=== PATIENT | female | born 1980 | race Caucasian/White ===

== ENCOUNTER 2016-06-22 11:59 | Emergency (ER) | payer OTHER ==
[~2016-06-22] VITALS: Wt 45.0 kg
[2016-06-22] MEDS ORDERED: SOD CHLORIDE 0.9% 1,000 ML IV STA (12:24)
[2016-06-22] MEDS ORDERED: ONDANSETRON 4 MG INJ IV STA (12:24)
[2016-06-22] MEDS ORDERED: morphine 2 MG INJ IV STA (12:24)
[2016-06-22 13:05] LABS: ADD UMIC YES; URINE BLOOD (Dip) 1+ (NEGATIVE); URINE COLOR YELLOW (YELLOW); URINE GLUCOSE (Dip) NEGATIVE (NEGATIVE); URINE KETONES (Dip) 15 (NEGATIVE); URINE LEUKOCYTE ESTERASE (Dip) NEGATIVE (NEGATIVE); URINE NITRITE (Dip) NEGATIVE (NEGATIVE); URINE TOTAL PROTEIN (Dip) NEGATIVE (NEGATIVE); URINE UROBILINOGEN (Dip) 1.0 E.U./dL (0.1-1.0)
[2016-06-22 13:15] LABS: POTASSIUM 4.1 mmol/L (3.5-5.1)
[2016-06-22 13:17] LABS: ALBUMIN/GLOBULIN RATIO 0.85; BASOPHILS % 0.6 % (0.0-2.0); BILIRUBIN,INDIRECT 0.3 mg/dl (0-1.1); BILIRUBIN,TOTAL 0.3 mg/dl (0.2-1.3); CREATININE 0.53 mg/dl (0.44-1.00); EOSINOPHILS # 0.1 10^3/ul (0.0-0.5); EOSINOPHILS % 1.1 % (0.0-7.0); HEMATOCRIT 26.5 % (37.0-47.0); HEMOGLOBIN 8.6 g/dl (12.0-16.0); ICTOTEST POSITIVE (NEGATIVE); LYMPHOCYTES # 1.5 10^3/ul (0.8-2.9); LYMPHOCYTES % 26.6 % (15.0-51.0); MEAN CORPUSCULAR HEMOGLOBIN 24.1 pg (29.0-33.0); MEAN CORPUSCULAR HGB CONC 32.6 g/dl (32.0-37.0); MEAN PLATELET VOLUME 8.4 fl (7.4-10.4); MONOCYTE # 0.6 10^3/ul (0.3-0.9); MONOCYTES % 9.7 % (0.0-11.0); NEUTROPHIL # 3.5 10^3/ul (1.6-7.5); PLATELET COUNT 277 10^3/UL (140-440); RED BLOOD COUNT 3.58 10^6/ul (4.20-5.40); RED CELL DISTRIBUTION WIDTH 19.8 % (11.5-14.5); TOTAL PROTEIN 8.7 g/dl (6.1-8.1); UNCORRECTED WBC 5.7 10^3/ul (4.8-10.8); URINE BILIRUBIN (Dip) 1 (NEGATIVE); WHITE BLOOD COUNT 5.7 10^3/ul (4.8-10.8)
[2016-06-22 13:18] LABS: CALCIUM 8.8 mg/dl (8.4-10.2)
[2016-06-22 13:20] LABS: MUCUS,URINE MODERATE; SQUAMOUS EPITHELIAL CELL,UR FEW
[2016-06-22 13:21] LABS: BACTERIA,URINE FEW
[2016-06-22 13:26] VITALS: TEMP 98.7
[2016-06-22 13:33] LABS: CONDITION 1; LH ANALYZER COMMENTS 1
[2016-06-22] MEDS ORDERED: SOD CHLORIDE 0.9% 1,000 ML IV ONE (16:00)
[2016-06-22 16:34] LABS: HEMATOCRIT 26.1 % (37.0-47.0); HEMOGLOBIN 8.4 g/dl (12.0-16.0)
[2016-06-22 17:49] VITALS: BP 131/72; PULSE 71; RESP 18
[2016-06-22] MEDS ORDERED: ONDA4TAB11 PO (18:07)
[2016-06-22] MEDS ORDERED: FER325 PO (18:18)
--- NOTE | 2016-06-22 18:24 | ERD ---
ER Documentation Chief Complaint Date/Time DATE: 06/22/16 TIME: 18:21 Chief Complaint VOMITING AND ABDMINAL PAIN FOR THE PAST 3 DAYS. HPI 35-year-old female comes in for nausea and vomiting for 3 days. She has epigastric about pain when she vomits. Denies any blood or bile in the vomit. Denies coffee-ground emesis. States that she does not have diarrhea and is having normal bowel movements with no blood or dark stools. No fevers or chills either. ROS All systems reviewed and are negative except as per history of present illness. Medications Home Meds Active Scripts Ferrous Sulfate* (Ferrous Sulfate*) 325 Mg Tabec, 325 MG PO TID, #30 TAB Prov:CHANTAL PONCE DO 06/22/16 Ondansetron (Zofran Odt) 4 Mg Tab.rapdis, 4 MG PO Q6, #10 Prov:CHANTAL PONCE DO 06/22/16 Allergies Allergies: Coded Allergies: No Known Drug Allergy (Verified Allergy, Unknown, 02/13/15) PMhx/Soc History of Surgery: Yes (C SECTION X4) Anesthesia Reaction: No Hx Neurological Disorder: No Hx Respiratory Disorders: No Hx Cardiac Disorders: No Hx Psychiatric Problems: No Hx Miscellaneous Medical Probl: No Hx Alcohol Use: Yes (3 40 OZ BOTTLES OF ALCOHOL) Hx Substance Use: No Hx Tobacco Use: Yes (2 cigarettes per day) Smoking Status: Light tobacco smoker Physical Exam Vitals Vital Signs Date Time Temp Pulse Resp B/P Pulse Ox O2 Delivery O2 Flow Rate FiO2 06/22/16 17:49 71 18 131/72 97 Room Air 06/22/16 15:30 77 18 116/66 97 Room Air 06/22/16 13:26 98.7 75 18 110/75 97 Room Air 06/22/16 12:00 98.6 88 20 144/78 97 Physical Exam Const: [] Head: Atraumatic Eyes: Normal Conjunctiva ENT: Normal External Ears, Nose and Mouth. Neck: Full range of motion..~ No meningismus. Resp: Clear to auscultation bilaterally Cardio: Regular rate and rhythm, no murmurs Abd: Soft, non tender, non distended. Normal bowel sounds Skin: No petechiae or rashes Back: No midline or flank tenderness Ext: No cyanosis, or edema Neur: Awake and alert Psych: Normal Mood and Affect Result Diagram: 06/22/16 1555 06/22/16 1245 Results 24 hrs Laboratory Tests Test 06/22/16 12:45 06/22/16 15:55 Alanine Aminotransferase (ALT/SGPT) 45IU/L Albumin 4.0g/dl Albumin/Globulin Ratio 0.85 Alkaline Phosphatase 99IU/L Anion Gap 17 Aspartate Amino Transf (AST/SGOT) 65IU/L Basophils # 0.010^3/ul Basophils % 0.6% Blood Morphology Comment Blood Urea Nitrogen 8mg/dl Calcium Level 8.8mg/dl Carbon Dioxide Level 27mmol/L Chloride Level 106mmol/L Creatinine 0.53mg/dl Direct Bilirubin 0.00mg/dl Eosinophils # 0.110^3/ul Eosinophils % 1.1% Globulin 4.70g/dl Glucose Level 90mg/dl Hematocrit 26.5% 26.1% Hemoglobin 8.6g/dl 8.4g/dl Indirect Bilirubin 0.3mg/dl Lipase 153U/L Lymphocytes # 1.510^3/ul Lymphocytes % 26.6% Mean Corpuscular Hemoglobin 24.1pg Mean Corpuscular Hemoglobin Concent 32.6g/dl Mean Corpuscular Volume 74.0fl Mean Platelet Volume 8.4fl Monocytes # 0.610^3/ul Monocytes % 9.7% Neutrophils # 3.510^3/ul Neutrophils % 62.0% Nucleated Red Blood Cells # 0.010^3/ul Nucleated Red Blood Cells % 0.0/100WBC Platelet Count 23125^3/UL Potassium Level 4.1mmol/L Red Blood Count 3.5810^6/ul Red Cell Distribution Width 19.8% Sodium Level 146mmol/L Total Bilirubin 0.3mg/dl Total Protein 8.7g/dl Urine Bacteria FEW Urine Bilirubin 1 Urine Clarity CLEAR Urine Color YELLOW Urine Glucose NEGATIVE% Urine Hemoglobin 1+ Urine Ictotest POSITIVE Urine Ketones 15 Urine Leukocyte Esterase NEGATIVE Urine Microscopic RBC 2-5/HPF Urine Microscopic WBC 2-5/HPF Urine Mucus MODERATE Urine Nitrite NEGATIVE Urine Specific Acton >=1.030 Urine Squamous Epithelial Cells FEW Urine Total Protein NEGATIVE Urine Urobilinogen 1.0 E.U./dL Urine pH 5.5 White Blood Count 5.710^3/ul Current Medications Medications (Trade) Dose Ordered Sig/Joe Route PRN Reason Start Time Stop Time Status Last Admin Dose Admin Sodium Chloride (NS) 1,000 ml @ 1,000 mls/hr Q1H STAT IV 06/22/16 12:24 06/22/16 13:23 DC 06/22/16 12:50 Morphine Sulfate (morphine) 2 mg ONCE STAT IV 06/22/16 12:24 06/22/16 12:26 DC 06/22/16 12:47 Ondansetron HCl 4 mg 4 mg ONCE STAT IV 06/22/16 12:24 06/22/16 12:26 DC 06/22/16 12:48 Sodium Chloride (NS) 1,000 ml @ 1,000 mls/hr Q1H ONCE IV 06/22/16 16:00 06/22/16 16:59 DC 06/22/16 16:30 Procedures/MDM Significant anemia in a patient had nausea vomiting. Nausea and a bowel pain reason resolved. She was given Zofran a small dose of morphine. I reviewed her EMR from her last visit when she was transfused 2 units of blood for anemia with hemoglobin with 7. I administered a liter of normal saline and repeat H&H to see if her true hemoglobin is actually lower. Only went down by 0.2 with a liter. Has decreased significantly from was 11.3. I offered the patient [place] to the hospital if she did not appear to have a colonoscopy or EGD last time. She does not want to stay in the hospital states that she feels better when like to go home. Tobacco make her sign out AGAINST MEDICAL ADVICE. Discharge her with ferrous sulfate 3 times a day as well as Zofran and instructions to follow up with her primary care doctor which she states that she has sent is possible, preferably on Friday for referral for a gastro-neurology workup. Of explained this to her and given in writing. She is with her significant other currently and they prefer to go home. Return precautions were given if she expresses any dizziness lightheadedness or any other concerning symptoms. Departure Diagnosis: Primary Impression: Nausea & vomiting Additional Impression: Anemia Condition: Stable Patient Instructions: Anemia, Vomiting (5Y-Adult) Referrals: COMMUNITY CLINICS YOU HAVE RECEIVED A MEDICAL SCREENING EXAM AND THE RESULTS INDICATE THAT YOU DO NOT HAVE A CONDITION THAT REQUIRES URGENT TREATMENT IN THE EMERGENCY DEPARTMENT. FURTHER EVALUATION AND TREATMENT OF YOUR CONDITION CAN WAIT UNTIL YOU ARE SEEN IN YOUR DOCTORS OFFICE WITHIN THE NEXT 1-2 DAYS. IT IS YOUR RESPONSIBILITY TO MAKE AN APPOINTMENT FOR FOLOW-UP CARE. IF YOU HAVE A PRIMARY DOCTOR --you should call your primary doctor and schedule an appointment IF YOU DO NOT HAVE A PRIMARY DOCTOR YOU CAN CALL OUR PHYSICIAN REFERRAL HOTLINE AT IF YOU CAN NOT AFFORD TO SEE A PHYSICIAN YOU CAN CHOSE FROM THE FOLLOWING [facility] CLINICS [facility] [address] [facility] [address] [facility] [address] [facility] [address] [facility] [address] [facility]. [facility]. [address] Additional Instructions: Llame al doctor MAANA y luis ines JOS PARA DENTRO DE 1-2 RUBIO. Consigue un referral para un SERVICER. Dgale a la secretaria que nosotros le instruimos hacer esta jos.Avise o llame si limon condicin se empeora antes de la jos. Regresa aqui si peor o no mejor. CHANTAL PONCE DO Jun 22, 2016 18:24
== END 2016-06-22 18:28 | disposition home or self-care (01) ==
LOC: E/R 11:59
DX: R11.2 Nausea with vomiting, unspecified (principal); D64.9 Anemia, unspecified; F17.210 Nicotine dependence, cigarettes, uncomplicated
CPT/HCPCS: 36415; 80053; 81001; 83690; 85014; 85018; 85025; 96374; 96375; 99284; J2270; J2405; J7030; 81003

== ENCOUNTER 2016-12-31 15:43 | Emergency (ER) | payer OTHER ==
[~2016-12-31] VITALS: Ht 152.4 cm; Wt 45.4 kg
[~2016-12-31 15:43] MED LIST: FER325 PO; ONDA4TAB11 PO
[2016-12-31 15:45] VITALS: Ht 152.4 cm; Wt 45.4 kg
== END 2016-12-31 18:47 | disposition left against medical advice (07) ==
LOC: E/R 15:43
DX: Z53.21 Procedure and treatment not carried out due to patient leaving prior to being seen by health care provider (principal)

== ENCOUNTER 2017-02-04 17:40 | Emergency (ER) | payer OTHER ==
[~2017-02-04] VITALS: Ht 152.4 cm; Wt 60.0 kg
[2017-02-04 17:48] VITALS: Ht 152.4 cm; Wt 60.0 kg
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
[2017-02-04 19:30] VITALS: BP 107/56; PULSE 68; RESP 13; TEMP 98.2
== END 2017-02-04 19:32 | disposition home or self-care (01) ==
LOC: EDUNIT# 17:40 → E/R 17:40
DX: T51.91XA Toxic effect of unspecified alcohol, accidental (unintentional), initial encounter (principal); F17.210 Nicotine dependence, cigarettes, uncomplicated
CPT/HCPCS: 82962; 99282

== ENCOUNTER 2017-02-06 14:29 | Emergency (ER) | payer OTHER, MEDICAID ==
[~2017-02-06] VITALS: Ht 152.4 cm; Wt 45.5 kg
[2017-02-06 14:38] VITALS: Ht 152.4 cm; Wt 45.5 kg
[2017-02-06] MEDS ORDERED: DIPHTH/TET/ACEL PERTUSS (ADULT) 0.5 ML VIAL IM* ONE (15:30)
[2017-02-06] MEDS ORDERED: IBUPROFEN 600 MG TAB PO ONE (15:30)
--- NOTE | 2017-02-06 16:06 | RADRPT ---
PROCEDURE: CT Brain without contrast. CLINICAL INDICATION: Pain, headache TECHNIQUE: Routine CT scan of the brain was performed on a high resolution multi detector scanner without intravenous contrast. One or more of the following dose reduction techniques were used: Auto mated exposure control; Adjustment of the mA and/or kV according to patient size; Use of iterative r econstruction technique. CTDI = 45 mGy. DLP = 630 mGy-cm. COMPARISON: CT brain 05/17/2013 FINDINGS: Hemorrhage: No evidence of intracranial hemorrhage. Acute ischemic changes: No evidence of acute ischemic changes. Mass effect: None. Parenchymal volume: Within normal limits for age. Ventricular system: Concordant with parenchymal volume. Chronic changes: Parenchymal attenuation is within normal limits. Extracranial soft tissues: Left parietal scalp soft tissue swelling. Calvarium: No fractures. Paranasal sinuses: Small fluid level within the right maxillary sinus. Mastoid air cells: Visualized mastoid air cells are clear. IMPRESSION: No acute intracranial abnormalities. Normal appearance of the brain parenchyma. Left parietal scalp soft tissue swelling is present without fractures. RPTAT: AADD .Lui Lwe MD, MD Date Time Electronically viewed and signed by .Lui Lew MD, on 02/06/2017 16:05 .B/
[2017-02-06 17:00] VITALS: BP 115/69; PULSE 85; RESP 20; TEMP 98.3
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
== END 2017-02-06 18:17 | disposition home or self-care (01) ==
LOC: E/R 14:29
DX: S00.03XA Contusion of scalp, initial encounter (principal); F10.20 Alcohol dependence, uncomplicated; F17.210 Nicotine dependence, cigarettes, uncomplicated; Y08.89XA Assault by other specified means, initial encounter; Z23 Encounter for immunization
CPT/HCPCS: 70450; 90471; 90715

== ENCOUNTER 2018-06-22 11:03 | Emergency (ER) | payer SELFPAY ==
[~2018-06-22] VITALS: Ht 152.4 cm; Wt 40.9 kg
[~2018-06-22 11:03] MED LIST changes: -FER325 PO; +FOLI-49 PO; +LAS20 PO; +MULTI PO; -ONDA4TAB11 PO; +PANT40TA4 PO; +PROP10TA6 PO; +SPIR50TA PO; +THIA100T56 PO
[2018-06-22 11:07] VITALS: BP 102/64; PULSE 64; RESP 20; Ht 152.4 cm; Wt 40.9 kg
[2018-06-22] MEDS ORDERED: SODI30SP2 NS (12:00)
--- NOTE | 2018-06-22 13:09 | ERD ---
ER Documentation Chief Complaint Chief Complaint BIBA with Complaints of a nose bleed HPI 37-year-old female patient with a past medical history of alcoholism presents the ED complaining of nosebleed that started 2 days ago. Denies any head or neck or facial traumas. Reports no digital trauma. Denies any fever, chills, nausea, vomiting, neck stiffness, abdominal pain, chest pain, shortness of breath. Patient reports that the bleeding stopped on its own, with pressure. Denies any gum bleeding, easy bruisability. ROS All systems reviewed and are negative except as per history of present illness. Medications Home Meds Active Scripts Sodium Chloride (Saline Nasal Samson) 30 Ml Samson, 30 ML NS BID , #1 SPRAY Prov:GENESIS HAGER PA-C 06/22/18 Thiamine* (Vitamin B-1*) 100 Mg Tablet, 100 MG PO DAILY for 30 Days, #30 TAB 6 Refills Prov:TRANG GARCIA MD 03/24/18 Multivitamins* (Theragran*) 1 Tab Tab, 1 TAB PO DAILY for 30 Days, #30 TAB 6 Refills Prov:TRANG GARCIA MD 03/24/18 Folic Acid* (Folic Acid*) 1 Mg Tablet, 1 MG PO DAILY for 30 Days, #30 TAB 6 Refills Prov:TRANG GARCIA MD 03/24/18 Furosemide (Lasix) 20 Mg Tab, 20 MG PO BID DIURETICS for 30 Days, #60 TAB 6 Refills Prov:TRANG GARCIA MD 03/24/18 Spironolactone* (Aldactone*) 50 Mg Tablet, 50 MG PO DAILY for 30 Days, #30 TAB 6 Refills Prov:TRANG GARCIA MD 03/24/18 Propranolol Hcl* (Propranolol Hcl*) 10 Mg Tablet, 10 MG PO BID for 30 Days, #60 TAB 6 Refills Prov:TRANG GARCIA MD 03/24/18 Pantoprazole* (Pantoprazole*) 40 Mg Tablet.dr, 40 MG PO BID@06,18 for 30 Days, #60 TAB 6 Refills Prov:TRANG GARCIA MD 03/14/18 Allergies Allergies: Coded Allergies: No Known Drug Allergy (Verified Allergy, Unknown, 05/09/18) PMhx/Soc History of Surgery: Yes (REMOVED UTERUS.) Anesthesia Reaction: No Hx Neurological Disorder: No Hx Respiratory Disorders: No Hx Cardiac Disorders: No Hx Psychiatric Problems: No Hx Miscellaneous Medical Probl: No Hx Alcohol Use: Yes Hx Substance Use: No Hx Tobacco Use: Yes Smoking Status: Former smoker FmHx Family History: No diabetes, No coronary disease Physical Exam Vitals Vital Signs Date Temp Pulse Resp B/P (MAP) Pulse Ox O2 O2 Flow FiO2 Time Delivery Rate 06/22/18 97.8 64 20 102/64 96 11:07 (77) Physical Exam Const: Awb-sed-ptbrvzxex, well-nourished. In no acute distress. Head: Atraumatic, normocephalic Eyes: Normal Conjunctiva without injection. No purulent discharge. PERRL. EOMI ENT: Normal external ear. Ear canal without erythema. Tympanic membrane pearly starkey without effusion or bulging. Nasal canal clear with normal turbinates. Dry blood noted on the right nasal canal. Moist oropharynx without tonsillar exudates. Non-erythematous pharynx. Uvula midline. No drooling. No trismus. Neck: Full range of motion. No meningismus. No cervical lymphadenopathy. Resp: Clear to auscultation bilaterally. No wheezing, rhonchi, rales, or crackles. No accessory muscle use. No retractions. Cardio: Regular rate and rhythm. No murmurs, rubs or gallops. Abd: Soft, non tender, non distended. Normal bowel sounds. No palpable masses. No rebound tenderness. No guarding. Skin: No petechiae or rashes Back: No midline tenderness. No CVA tenderness. Ext: No cyanosis, or edema. Neur: Awake and alert. Psych: Normal Mood and Affect Procedures/MDM 37-year-old female patient with a past medical history of alcoholism presents to ED complaining of a nosebleed that started 2 days ago. Patient is afebrile and nontoxic-appearing. She likely has an anterior epistaxis with dried blood noted in the right nasal nare. Low suspicion for posterior epistaxis, intracranial bleed, bleeding disorders, subarachnoid hemorrhage, meningitis, alcohol withd shantell, TIA, stroke, nasal fracture, or other emergent conditions. She denies any suicidal homicidal ideations. No indication for 5150 for psychiatric evaluation at this time. Discussed with Dr. Zuniga who agreed with management and discharge plan Diagnosis: Epistaxis Discharge medications: Nasal Saline Samson Follow up with primary care physician in 1-2 days. Instructed patient to return to the ED sooner for any worsening symptoms. Patient's questions were answered. Patient is hemodynamically stable. Patient understood and agreed with discharge plan. Patient discharged stable. Disclaimer: Inadvertent spelling and grammatical errors are likely due to EHR/dictation software use and do not reflect on the overall quality of patient care. Also, please note that the electronic time recorded on this note does not necessarily reflect the actual time of the patient encounter. Departure Diagnosis: Primary Impression: Epistaxis Condition: Stable Patient Instructions: Epistaxis (Adult) Referrals: [facility] YOU HAVE RECEIVED A MEDICAL SCREENING EXAM AND THE RESULTS INDICATE THAT YOU DO NOT HAVE A CONDITION THAT REQUIRES URGENT TREATMENT IN THE EMERGENCY DEPARTMENT. FURTHER EVALUATION AND TREATMENT OF YOUR CONDITION CAN WAIT UNTIL YOU ARE SEEN IN YOUR DOCTORS OFFICE WITHIN THE NEXT 1-2 DAYS. IT IS YOUR RESPONSIBILITY TO MAKE AN APPOINTMENT FOR FOLOW-UP CARE. IF YOU HAVE A PRIMARY DOCTOR --you should call your primary doctor and schedule an appointment IF YOU DO NOT HAVE A PRIMARY DOCTOR YOU CAN CALL OUR PHYSICIAN REFERRAL HOTLINE AT IF YOU CAN NOT AFFORD TO SEE A PHYSICIAN YOU CAN CHOSE FROM THE FOLLOWING [facility] [address] [facility]. [facility] [address] [facility] [address] [facility] [facility] [address] [facility] [facility] [address] [facility] [facility]. [address] [facility]. [facility] YOU HAVE RECEIVED A MEDICAL SCREENING EXAM AND THE RESULTS INDICATE THAT YOU DO NOT HAVE A CONDITION THAT REQUIRES URGENT TREATMENT IN THE EMERGENCY DEPARTMENT. FURTHER EVALUATION AND TREATMENT OF YOUR CONDITION CAN WAIT UNTIL YOU ARE SEEN IN YOUR DOCTORS OFFICE WITHIN THE NEXT 1-2 DAYS. IT IS YOUR RESPONSIBILITY TO MAKE AN APPOINTMENT FOR FOLOW-UP CARE. IF YOU HAVE A PRIMARY DOCTOR --you should call your primary doctor and schedule and appointment IF YOU DO NOT HAVE A PRIMARY DOCTOR YOU CAN CALL OUR PHYSICIAN REFERRAL HOTLINE AT . IF YOU CAN NOT AFFORD TO SEE A PHYSICIAN YOU CAN CHOSE FROM THE FOLLOWING [facility] INSTITUTIONS: [facility] [address] [place] [address] [facility] [address] [place] [address] [facility] [address] [place] [address] [facility] URGENT CARE/SPECIALTIES Additional Instructions: Llame al doctor MAANA y luis ines JOS PARA DENTRO DE 2-3 RUBIO.Dgale a la secretaria que nosotros le instruimos hacer esta jos.Avise o llame si limon condicin se empeora antes de la jos. Regresa aqui si peor o no mejor. GENESIS HAGER PA-C Jun 22, 2018 13:09
== END 2018-06-22 12:30 | disposition home or self-care (01) ==
LOC: FTE 11:03
DX: R04.0 Epistaxis (principal); Z87.891 Personal history of nicotine dependence
CPT/HCPCS: 99282

== ENCOUNTER 2018-07-05 19:53 | Emergency (ER) | payer MEDICAID ==
[~2018-07-05] VITALS: Ht 147.3 cm; Wt 45.5 kg
[~2018-07-05 19:53] MED LIST changes: +SODI30SP2 NS
[2018-07-05 19:57] VITALS: BP 132/80; PULSE 116; RESP 18; Ht 147.3 cm; Wt 45.5 kg
[2018-07-06] MEDS ORDERED: ELIM TOP (02:02)
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
== END 2018-07-06 02:47 | disposition home or self-care (01) ==
LOC: FTE 19:53
DX: S80.11XA Contusion of right lower leg, initial encounter (principal); R21 Rash and other nonspecific skin eruption; S80.12XA Contusion of left lower leg, initial encounter; F17.210 Nicotine dependence, cigarettes, uncomplicated; Y04.8XXA Assault by other bodily force, initial encounter
CPT/HCPCS: 70450; 70486; 72125; 73562; 73590; 73600; 81003; 81025; Z7502

== ENCOUNTER 2018-07-27 16:26 | Emergency (ER) | payer MEDICAID ==
[~2018-07-27] VITALS: Ht 152.4 cm; Wt 50.0 kg
[~2018-07-27 16:26] MED LIST changes: +ELIM TOP
[2018-07-27 16:44] VITALS: Ht 152.4 cm; Wt 50.0 kg
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
[2018-07-28 02:11] VITALS: BP 102/72; PULSE 52; RESP 16
== END 2018-07-28 02:15 | disposition home or self-care (01) ==
LOC: E/R 16:26
DX: F10.920 Alcohol use, unspecified with intoxication, uncomplicated (principal); F17.210 Nicotine dependence, cigarettes, uncomplicated; R51 Headache
CPT/HCPCS: 70450; 84703; Z7502

== ENCOUNTER 2018-08-22 12:42 | Inpatient (IN) | payer MEDICAID ==
[~2018-08-22] VITALS: Ht 149.9 cm; Wt 40.3 kg
[2018-08-22] MEDS ORDERED: SOD CHLORIDE 0.9% 1,000 ML IV STA (13:04)
[2018-08-22] MEDS ORDERED: PANTOPRAZOLE IV 80 MG in SOD CHLORIDE 0.9% 100 ML IVPB STA (14:04)
[2018-08-22] MEDS ORDERED: OCTREOTIDE 500 MCG in SOD CHLORIDE 0.9% 49 ML IV STA (14:04)
[2018-08-22] MEDS ORDERED: ONDANSETRON 4 MG INJ IV STA (14:04)
[2018-08-22] MEDS ORDERED: PANTOPRAZOLE IV 80 MG in SOD CHLORIDE 0.9% 100 ML IV STA (14:04)
[2018-08-22] MEDS ORDERED: ONDANSETRON 4 MG INJ IV PRN ×2 (15:30→17:30)
--- NOTE | 2018-08-22 15:47 | ERD ---
ER Documentation Chief Complaint Chief Complaint AP/FLU LIKE SYMPTOMS [id number] HPI This is a 29-year-old female with multiple previous emergency room visits and known history of alcoholic liver disease. The patient presents to the emergency department brought in by EMS as she stated she had developed abdominal cramping with multiple episodes of bloody emesis. She stated it was [id number] in color. She indicated that she had consumed a significant amount of alcohol prior to arrival. She denied any blunt or penetrating head chest or abdominal trauma. She denies any bright red blood per rectum. She denies any chest pain. She has no shortness of breath at rest or exertion. She denies any illicit drug use. She said no fevers or shaking or chills ROS All systems reviewed and are negative except as per history of present illness. Medications Home Meds Discontinued Scripts Permethrin* (Elimite*) 5% Cr, 1 APPLIC TOP ONCE, #1 TUB Prov:GENESIS HAGER PA-C 07/06/18 Sodium Chloride (Saline Nasal [place]) 30 Ml [place], 30 ML NS BID , #1 SPRAY Prov:GENESIS HAGER PA-C 06/22/18 Thiamine* (Vitamin B-1*) 100 Mg Tablet, 100 MG PO DAILY for 30 Days, #30 TAB 6 Refills Prov:TRANG GARCIA MD 03/24/18 Multivitamins* (Theragran*) 1 Tab Tab, 1 TAB PO DAILY for 30 Days, #30 TAB 6 Refills Prov:TRANG GARCIA MD 03/24/18 Folic Acid* (Folic Acid*) 1 Mg Tablet, 1 MG PO DAILY for 30 Days, #30 TAB 6 Refills Prov:TRANG GARCIA MD 03/24/18 Furosemide (Lasix) 20 Mg Tab, 20 MG PO BID DIURETICS for 30 Days, #60 TAB 6 Refills Prov:TRANG GARCIA MD 03/24/18 Spironolactone* (Aldactone*) 50 Mg Tablet, 50 MG PO DAILY for 30 Days, #30 TAB 6 Refills Prov:TRANG GARCIA MD 03/24/18 Propranolol Hcl* (Propranolol Hcl*) 10 Mg Tablet, 10 MG PO BID for 30 Days, #60 TAB 6 Refills Prov:TRANG GARCIA MD 03/24/18 Pantoprazole* (Pantoprazole*) 40 Mg Tablet.dr, 40 MG PO BID@06,18 for 30 Days, #60 TAB 6 Refills Prov:TRANG GARCIA MD 03/14/18 Allergies Allergies: Coded Allergies: No Known Drug Allergy (Verified Allergy, Unknown, 08/22/18) PMhx/Soc History of Surgery: Yes (REMOVED UTERUS.) Anesthesia Reaction: No Hx Neurological Disorder: No Hx Respiratory Disorders: No Hx Cardiac Disorders: No Hx Psychiatric Problems: Yes (ETOH ABUSE) Hx Miscellaneous Medical Probl: Yes (DM) Hx Alcohol Use: Yes (ETOH INTOXICATION) Hx Substance Use: No Hx Tobacco Use: Yes Smoking Status: Current every day smoker Physical Exam Vitals Vital Signs Date Temp Pulse Resp B/P (MAP) Pulse Ox O2 O2 Flow FiO2 Time Delivery Rate 08/22/18 98.9 103 16 110/63 96 12:47 (79) Physical Exam Constitutional:Well-developed. Disheveled and cachectic HEENT:Normocephalic. Atraumatic.Pupils were equal round reactive to light. Very dry mucous membranes dried blood present around the outer lips.No tonsillar exudates. Mild scleral icterus Neck: No nuchal rigidity. No lymphadenopathy. No posterior cervical spine tenderness or step-offs. Respiratory: Not using accessory muscles of respiration.Lungs were clear to auscultation bilaterally. No rhonchi. No rales. No wheezing. Cardiovascular: Tachycardic with regular rhythm.No murmurs. No rubs were appreciated.S1, S2 normal. Distal pulses are palpable 2+ bilaterally. GI: Abdomen was soft. Nontender. Hepatomegaly. Non Distended. No pulsatile abdominal masses or bruits. No rebound. No guarding. Bowel sounds were present and normal. Muscle skeletal: Full range of motion of both the upper and lower extremities bilaterally.Normal muscle tone.No assymetrical calf tenderness or swelling. Skin: No petechia, no purpura. No lesions on the palms or the soles of the feet. No maculopapular rash. NEURO: Patient drowsy but easily arousable. Speech was not slurred. The patient smells of alcohol. Patient was too altered to ambulate. Patient withdrew to pain. Result Diagram: 08/22/18 1315 08/22/18 1314 Results 24 hrs Laboratory Tests Test 08/22/18 13:14 08/22/18 13:15 3/30/19 13:51 Prothrombin Time 20.0 Sec Prothrombin Time Ratio 1.6 INR International Normalized Ratio 1.69 Activated Partial Thromboplast 48.0 Sec Time Sodium Level 141 mmol/L Potassium Level 3.2 mmol/L Chloride Level 111 mmol/L Carbon Dioxide Level 22 mmol/L Anion Gap 8 Blood Urea Nitrogen 6 mg/dl Creatinine 0.44 mg/dl Est Glomerular Filtrat Rate mL/min > 60 mL/min Glucose Level 105 mg/dl Calcium Level 7.8 mg/dl Total Bilirubin 3.8 mg/dl Direct Bilirubin 1.30 mg/dl Indirect Bilirubin 2.5 mg/dl Aspartate Amino Transf (AST/SGOT) 89 IU/L Alanine 15 IU/L Aminotransferase (ALT/SGPT) Alkaline Phosphatase 337 IU/L Total Protein 9.0 g/dl Albumin 2.9 g/dl Globulin 6.10 g/dl Albumin/Globulin Ratio 0.47 Amylase Level 202 U/L Lipase 613 U/L Serum HCG, Qualitative NEGATIVE Ethyl Alcohol Level 255.0 mg/dl White Blood Count 4.6 10^3/ul Red Blood Count 1.57 10^6/ul Hemoglobin 6.3 g/dl Hematocrit 19.7 % Mean Corpuscular Volume 125.5 fl Mean Corpuscular Hemoglobin 40.1 pg Mean Corpuscular 32.0 g/dl Hemoglobin Concent Red Cell Distribution Width 15.8 % Platelet Count 37 10^3/UL Mean Platelet Volume 9.5 fl Immature Granulocytes % 0.400 % Neutrophils % % Segmented Neutrophils % (Manual) 73 % Lymphocytes % % Lymphocytes % (Manual) 18 % Monocytes % % Monocytes % (Manual) 8 % Eosinophils % % Eosinophils % (Manual) 1 % Basophils % % Nucleated Red Blood Cells % 0.0 /100WBC Immature Granulocytes # 0.020 10^3/ul Neutrophils # 10^3/ul Lymphocytes (Manual) 0.8 10^3/ul Lymphocytes # 10^3/ul Monocytes # 10^3/ul Monocytes # (Manual) 0.3 10^3/ul Eosinophils # 10^3/ul Basophils # 10^3/ul Nucleated Red Blood Cells # 10^3/ul Pathologist Review (Hematology) Y Giant Platelets 1 % Absolute Reticulocyte Count 0.118 X10^6 Percent Reticulocyte Count 7.8 % Iron Level 44 ug/dl Total Iron Binding Capacity 182 ug/dl Percent Iron Saturation 24 % SAT Ferritin 35.7 ng/ml Lactate Dehydrogenase 699 IU/L Current Medications Medications Dose Sig/Joe Start Time Status Last (Trade) Ordered Route PRN Stop Time Admin Dose Reason Admin Sodium 1,000 ml @ Q1H STAT 08/22/18 DC 08/22/18 Chloride 1,000 mls/hr IV 13:04 13:38 08/22/18 14:03 Pantoprazole 100 ml @ ONCE STAT 08/22/18 DC 08/22/18 80 mg/Sodium 400 mls/hr IVPB 14:04 14:57 Chloride 08/22/18 14:18 Pantoprazole 100 ml @ ONCE STAT 08/22/18 08/22/18 80 mg/Sodium 10 mls/hr IV 14:04 14:57 Chloride 08/23/18 00:03 Octreotide 50 ml @ 5 ONCE STAT 08/22/18 08/22/18 Acetate 500 mls/hr IV 14:04 14:57 mcg/ Sodium 08/23/18 00:03 Chloride Ondansetron 4 mg ONCE STAT 08/22/18 DC 08/22/18 HCl (Zofran IV 14:04 15:07 Inj) 08/22/18 14:08 Ondansetron 4 mg ER BRIDGE 08/22/18 HCl (Zofran PRN IV 15:30 Inj) NAUSEA/VOMITI 08/23/18 15:29 NG Procedures/MDM The patient presented to the emergency department with an acute and persistent change in their mental status. The differential diagnosis is diverse however reversible causes such as hypoglycemia, opiate overdose, thiamine deficiency were immediately considered. The patient was placed on a equipment monitor phototypesetting, continuous pulse oximetry and IV access was established. The patients airway was secure however hypoxic events such as anemia, shock, or severe pulmonary disease were all considered as etiologies in this patients presentation. Circulation assessed with good cap refill and did not require fluids or pressure support. Finger stick for rapid glucose determined to be normal. The patient appeared very drowsy but showed no evidence of blunt or penetrating head chest or abdominal trauma. I did feel the patient's drowsiness likely result of alcohol intoxication as her serum ethanol was significantly elevated to 225. The patient however did state that she had experienced coffee-ground emesis which is more concerning for an upper GI bleed given that the patient has a history of alcoholism. She immediately was placed on IV Protonix and octreotide. She was given Zofran. Chest radiograph showed mild pulmonary vascular congestion but there is no infiltrates or pneumothorax. The patient will be admitted in serious condition for continuation of PPIs for suspected upper GI bleed secondary to alcoholic liver disease. The patient was significantly anemic with a hemoglobin of 6.3 and this was a macrocytic anemia. The patient was typed and crossed and given 2 units of packed red blood cells. Patient was also thrombocytopenic with a platelet count of 37,000. This will continue to be monitored upon admission. Patient will go to the telemetry service in serious condition under the care of the hospitalist Dr. Nagel Critical Care: Time: 80 minutes Treatments/Evaluations: Close monitoring and treatment of unstable vital signs, cardiorespiratory, and neurologic status, while maintaining tight balance of fluid, respiratory, and cardiac interventions. Time does not include performing any of the above billable procedures. Departure Diagnosis: Primary Impression: Upper GI bleed Additional Impressions: Toxic encephalopathy Severe anemia Thrombocytopenia Condition: Serious CHRIS MUELLER MD Aug 22, 2018 15:47
[2018-08-22] MEDS ORDERED: LORAZEPAM 2 MG INJ IV PRN (17:30)
[2018-08-22] MEDS ORDERED: ALBUTEROL/IPRATROPIUM (NEB) 3 ML AMP HHN PRN (17:30)
[2018-08-22] MEDS ORDERED: hydrALAzine 20 MG INJ IV PRN (17:30)
[2018-08-22] MEDS ORDERED: NITROGLYCERIN (SL) 0.4 MG TAB SL PRN (17:30)
[2018-08-22] MEDS ORDERED: ACETAMINOPHEN 325 MG TAB PO PRN (17:30)
[2018-08-22] MEDS ORDERED: NACL 0.9% 3 ML SYG IV SCH (17:30)
[2018-08-22] MEDS ORDERED: morphine 2 MG INJ IV PRN (17:30)
[2018-08-22] MEDS ORDERED: DOCUSATE SODIUM 100 MG CAP PO PRN (17:30)
[2018-08-22] MEDS ORDERED: MAGNESIUM HYDROXIDE 30ML CUP PO PRN (17:30)
[2018-08-22] MEDS ORDERED: HYDROCODONE/APAP (5/325) TAB PO PRN (17:30)
[2018-08-22 17:46] VITALS: BP 98/57; PULSE 111; RESP 16; Ht 149.9 cm; Wt 40.3 kg
[2018-08-22 17:59] VITALS: PULSE 103
--- NOTE | 2018-08-22 19:49 | HP ---
DATE OF ADMISSION: 08/22/2018 IDENTIFICATION: This is a 37-year-old female. CHIEF COMPLAINT: Altered mental status and anemia. HISTORY OF PRESENT ILLNESS: A 37-year-old female with past medical history based on records of alcoh ol abuse, alcoholic cirrhosis, possible diabetes, prior failure to thrive syndrome who was last here at our hospital from 03/07 to 03/24/2018. At that time, she was treated for failure to thrive and pa ncreatitis and hematemesis. She comes in this time with altered mental status. She was brought in b y EMS. She also was complaining of abdominal cramping and had multiple episodes of hematemesis, coff ee-ground like in color and intensity. The patient does admit to recent alcohol use as well. Denies any lower GI bleeding, no diarrhea or constipation, no nausea, vomiting or fevers or chills. When s he came in today, she had blood tests performed that showed a hemoglobin of 6.3 and she has been orde red for 2 units of PRBC transfusion, which is presently waiting to be given. She was also found with platelets of 37, significant thrombocytopenia. She was also in the ER, started on Protonix drip and octreotide drip. PAST MEDICAL HISTORY: As stated above. ALLERGIES: NO KNOWN DRUG ALLERGIES. HOME MEDICATIONS: Unknown. PAST SURGICAL HISTORY: Looks like uterus removal surgery in the past. SOCIAL HISTORY: Positive for alcohol use and smoking history. Counseled on cessation. FAMILY HISTORY: Noncontributory. PHYSICAL EXAMINATION: VITAL SIGNS: Today, T-max 98.9, pulse 103, respirations 18, blood pressure 110/63, satting at 96% on room air. GENERAL: The patient is lying in bed, disheveled and cachectic looking, but opens eyes. HEENT: Pupils equal, round, reactive to light, extraocular muscles intact. NECK: Supple, no thyromegaly. LUNGS: Slightly decreased breath sounds bilaterally. CARDIOVASCULAR: S1, S2 heard. No rubs or gallops. ABDOMEN: Soft, nontender. There is no hepatomegaly noted but nondistended, otherwise. No rebound o r guarding. Normal bowel sounds. MUSCULOSKELETAL: No lower extremity edema bilaterally. NEUROLOGIC: No focal deficits. LABORATORIES: WBC 4.6, hemoglobin 6.3, hematocrit 19.7, platelets are 37. The sodium 141, potassium 3.2, chloride 111, CO2 22, BUN 6, creatinine 0.44, glucose of 105. The total bilirubin is 3.8, the direct is 1.3. The lactate dehydrogenase elevated at 699, indirect bilirubin is 2.5, AST is 89, debo line phosphatase is 337. Lipase is 613. Amylase is 202, so those are both elevated. There is no UA from today. The blood alcohol level is elevated at 255. Chest x-ray today shows pulmonary vascular congestion and edema present. ASSESSMENT AND PLAN: 1. A 37-year-old female coming in with weakness and alcohol intoxication and anemia secondary to upp er gastrointestinal bleeding, most likely with a prior history of cirrhosis and alcohol abuse and arias lure to thrive and diabetes. Continue proton pump inhibitor and octreotide drips for now. 2. Anemia, hematemesis. Again, patient has a history of cirrhosis and alcohol abuse history and she admits to drinking recently and her blood alcohol level was elevated, so admit the patient. Give he r blood transfusion. Follow up stool occult test get a GI consult. Follow up TSH, A1c and lipid [place]. The patient is showing signs of possible alcoholic hepatitis, given her elevated LFTs. We will continue to trend those for now. Consider starting steroids. We will discuss with GI team who will consult as well. 3. Alcohol intoxication. Again, see #1. We will put on banana bag, Ativan q.1 hours p.r.n. signs o f withdrawal and agitation. If her symptoms worsen, consider Librium administration. 4. History of diabetes. Follow up A1c. Continue sliding scale insulin. 5. History of alcoholic cirrhosis. Again, counseled on cessation, see #1. 6. Gastrointestinal prophylaxis. Again, she is on proton pump inhibitor. 7. Deep venous thrombosis prophylaxis. Sequential compression devices. Dictated By: COLIN MCBRIDE Conf#: [id number] DID#: [id number]
[2018-08-22 20:00] VITALS: BP 102/57; PULSE 100; PULSE 98; RESP 18
[2018-08-22] MEDS: NICOTINE (14 MG/24 HR) PATCH TRANSDERM SCH (21:00)
[2018-08-23] VITALS (10 sets, daily range): BP systolic 105–157; BP diastolic 60–86; PULSE 82–104; RESP 18–20
[2018-08-23] MEDS ORDERED: DEXTROSE 5%-0.45% NACL 1,000 ML IV SCH (01:00)
[2018-08-23] MEDS ORDERED: POTASSIUM CHLORIDE 100 ML IVPB ONE (01:00)
[2018-08-23] MEDS ORDERED: hydrALAzine 20 MG INJ IV ONE (01:30)
[2018-08-23] MEDS: PANTOPRAZOLE 40 MG INJ IV SCH ×2 (05:08→18:12)
[2018-08-23] MEDS: MULTIVITAMINS 10 ML, THIAMINE 100 MG, FOLIC ACID 1 MG in SOD CHLORIDE 0.9% 1,000 ML IVPB SCH (08:49)
[2018-08-23] MEDS ORDERED: SOD CHLORIDE 0.9% 250 ML IV* ONE (10:27)
--- NOTE | 2018-08-23 10:52 | PN ---
Date/Time of Note Date/Time of Note DATE: 08/23/18 TIME: 10:41 Assessment/Plan VTE Prophylaxis Risk score (from Ns)>0 risk: 1 SCD applied (from Ns): Yes Pharmacological prophylaxis: NA/contraindicated Pharm contraindication: bleeding Lines/Catheters IV [facility]from [facility]): Peripheral IV Assessment/Plan Hospital Course S: Patient had some more hematemesis last night, presently getting PRBC transfusion. On banana bag. Waiting to be seen by GI team. Patient asking when she can eat. O: VS -see below PHYSICAL EXAMINATION: GENERAL: Lying in bed, no acute distress HEENT: pupils equal, round, reactive to light, extraocular muscles intact. NECK: Supple, no thyromegaly. LUNGS: Slightly decreased breath sounds bilaterally. CARDIOVASCULAR: S1, S2 heard. No rubs or gallops. ABDOMEN: Soft, nontender. There is no hepatomegaly noted but nondistended, otherwise. No rebound or guarding. Normal bowel sounds. MUSCULOSKELETAL: No lower extremity edema bilaterally. NEUROLOGIC: No focal deficits. ASSESSMENT AND PLAN: 37-year-old female coming in with weakness and alcohol intoxication and anemia secondary to upper gastrointestinal bleeding, most likely with a prior history of cirrhosis and alcohol abuse and failure to thrive and diabetes. # Anemia + hematemesis-hemoglobin on admission 6 range, presently getting PRBC transfusion. Received PPI drip and octreotide on admission. Patient has a history of cirrhosis and alcohol abuse history and she admits to drinking recently and her blood alcohol level was elevated on admission, as well as her ammonia levels. -Follow-up post transfusion H&H, as well as stool occult test and GI consult recommendations -For her thrombocytopenia, since she is bleeding will order for 1 unit blood transfusion today. Follow-up CBC in the morning. -Replete low magnesium # Alcohol hepatitis + intoxication - LFTs are elevated, including total bilirubin 3.8 on admission, today 5. Discriminate function score appears to be in the 36-42 range. -Follow GI recommendations, for now start her on prednisone 40 mg a day, treat for 28 days if okay with GI team -For alcohol intoxication, continue banana bag, Ativan q.1 hours p.r.n. signs of withdrawal and agitation. If these symptoms worsen, consider Librium administration. -For elevated ammonia levels, likely signs of hepatic encephalopathy start lactulose and trend ammonia -Soft hepatic diet # History of diabetes -sugar stable, A1c result not back yet - continue sliding scale insulin. # History of alcoholic cirrhosis. Again, counseled on cessation, see #1. # Gastrointestinal prophylaxis- proton pump inhibitor IV Result Diagram: 08/23/18 0456 08/23/18 0456 Results 24hrs Laboratory Tests Test 08/22/18 13:14 08/22/18 13:15 08/22/18 13:45 08/22/18 13:51 Prothrombin Time 20.0 H Prothrombin Time 1.6 Ratio INR International 1.69 Normalized Ratio Activated 48.0 H Partial Thromboplast Time Sodium Level 141 Potassium Level 3.2 L Chloride Level 111 H Carbon Dioxide Level 22 Anion Gap 8 Blood Urea Nitrogen 6 L Creatinine 0.44 Est Glomerular > 60 Filtrat Rate mL/min Glucose Level 105 Calcium Level 7.8 L Total Bilirubin 3.8 H Direct Bilirubin 1.30 H Indirect Bilirubin 2.5 H Aspartate Amino 89 H Transf (AST/SGOT) Alanine 15 Aminotransferase (AL T/SGPT) Alkaline Phosphatase 337 H B-Type Natriuretic 180 H Peptide Total Protein 9.0 H Albumin 2.9 L Globulin 6.10 H Albumin/Globulin 0.47 Ratio Amylase Level 202 H Lipase 613 H Serum HCG, NEGATIVE Qualitative Ethyl Alcohol Level 255.0 H White Blood Count 4.6 #L Red Blood Count 1.57 #L Hemoglobin 6.3 #*L Hematocrit 19.7 #L Mean Corpuscular 125.5 #H Volume Mean Corpuscular 40.1 #H Hemoglobin Mean Corpuscular 32.0 Hemoglobin Concent Red Cell 15.8 H Distribution Width Platelet Count 37 #L Mean Platelet Volume 9.5 Immature 0.400 Granulocytes % Neutrophils % Segmented 73 Neutrophils % (Manual) Lymphocytes % Lymphocytes % 18 (Manual) Monocytes % Monocytes % (Manual) 8 Eosinophils % Eosinophils % 1 (Manual) Basophils % Nucleated Red Blood 0.0 Cells % Immature 0.020 Granulocytes # Neutrophils # Lymphocytes (Manual) 0.8 Lymphocytes # Monocytes # Monocytes # (Manual) 0.3 Eosinophils # Basophils # Nucleated Red Blood Cells # Pathologist Y Review (Hematology) Giant Platelets 1 H Free Thyroxine 1.43 Absolute 0.118 H Reticulocyte Count Percent Reticulocyte 7.8 H Count Iron Level 44 Total Iron Binding 182 L Capacity Percent Iron 24 Saturation Ferritin 35.7 Lactate 699 H Dehydrogenase Test 08/22/18 18:35 08/23/18 04:54 08/23/18 04:56 Prothrombin Time 19.6 H Prothrombin Time 1.5 Ratio INR International 1.65 Normalized Ratio Activated 50.1 H Partial Thromboplast Time Ammonia 96 #H 78 H Triglycerides Level 95 Cholesterol Level 169 LDL Cholesterol, 117 Calculated HDL Cholesterol 33 L Cholesterol/HDL 5.1 Ratio Thyroid Stimulating 0.177 L Hormone (TSH) White Blood Count 3.6 #L Red Blood Count 1.45 L Hemoglobin 5.7 *L Hematocrit 18.2 L Mean Corpuscular 125.5 H Volume Mean Corpuscular 39.3 H Hemoglobin Mean Corpuscular 31.3 L Hemoglobin Concent Red Cell 15.2 H Distribution Width Platelet Count 32 L Mean Platelet Volume 10.2 Immature 0.600 H Granulocytes % Neutrophils % 72.0 Lymphocytes % 18.6 Monocytes % 6.9 Eosinophils % 1.1 Basophils % 0.8 Nucleated Red Blood 0.0 Cells % Immature 0.020 Granulocytes # Neutrophils # 2.6 Lymphocytes # 0.7 L Monocytes # 0.3 Eosinophils # 0.0 Basophils # 0.0 Nucleated Red Blood 0.0 Cells # Sodium Level 139 Potassium Level 3.7 Chloride Level 107 Carbon Dioxide Level 23 Anion Gap 9 Blood Urea Nitrogen 3 L Creatinine 0.40 L Est Glomerular > 60 Filtrat Rate mL/min Glucose Level 155 Hemoglobin A1c Calcium Level 7.7 L Phosphorus Level 3.8 Magnesium Level 1.3 L Total Bilirubin 5.0 H Direct Bilirubin 2.10 #H Indirect Bilirubin 2.9 H Aspartate Amino 86 H Transf (AST/SGOT) Alanine 26 Aminotransferase (AL T/SGPT) Alkaline Phosphatase 263 H Total Protein 8.1 Albumin 2.6 L Lipase 129 Exam/Review of Systems Exam Vitals Vital Signs Date Temp Pulse Resp B/P (MAP) Pulse Ox O2 O2 Flow FiO2 Time Delivery Rate 08/23/18 104 08:47 08/23/18 98.0 20 108/62 98 07:32 (77) 08/22/18 Room Air 17:46 Intake and Output 08/22/18 08/22/18 08/23/18 1515:00 23:00 07:00 IntakeIntake Total 1000 ml 100 ml 500 ml BalanceBalance 1000 ml 100 ml 500 ml Results Results 24hrs Laboratory Tests Test 08/22/18 13:14 08/22/18 13:15 08/22/18 13:45 08/22/18 13:51 Prothrombin Time 20.0 H Prothrombin Time 1.6 Ratio INR International 1.69 Normalized Ratio Activated 48.0 H Partial Thromboplast Time Sodium Level 141 Potassium Level 3.2 L Chloride Level 111 H Carbon Dioxide Level 22 Anion Gap 8 Blood Urea Nitrogen 6 L Creatinine 0.44 Est Glomerular > 60 Filtrat Rate mL/min Glucose Level 105 Calcium Level 7.8 L Total Bilirubin 3.8 H Direct Bilirubin 1.30 H Indirect Bilirubin 2.5 H Aspartate Amino 89 H Transf (AST/SGOT) Alanine 15 Aminotransferase (AL T/SGPT) Alkaline Phosphatase 337 H B-Type Natriuretic 180 H Peptide Total Protein 9.0 H Albumin 2.9 L Globulin 6.10 H Albumin/Globulin 0.47 Ratio Amylase Level 202 H Lipase 613 H Serum HCG, NEGATIVE Qualitative Ethyl Alcohol Level 255.0 H White Blood Count 4.6 #L Red Blood Count 1.57 #L Hemoglobin 6.3 #*L Hematocrit 19.7 #L Mean Corpuscular 125.5 #H Volume Mean Corpuscular 40.1 #H Hemoglobin Mean Corpuscular 32.0 Hemoglobin Concent Red Cell 15.8 H Distribution Width Platelet Count 37 #L Mean Platelet Volume 9.5 Immature 0.400 Granulocytes % Neutrophils % Segmented 73 Neutrophils % (Manual) Lymphocytes % Lymphocytes % 18 (Manual) Monocytes % Monocytes % (Manual) 8 Eosinophils % Eosinophils % 1 (Manual) Basophils % Nucleated Red Blood 0.0 Cells % Immature 0.020 Granulocytes # Neutrophils # Lymphocytes (Manual) 0.8 Lymphocytes # Monocytes # Monocytes # (Manual) 0.3 Eosinophils # Basophils # Nucleated Red Blood Cells # Pathologist Y Review (Hematology) Giant Platelets 1 H Free Thyroxine 1.43 Absolute 0.118 H Reticulocyte Count Percent Reticulocyte 7.8 H Count Iron Level 44 Total Iron Binding 182 L Capacity Percent Iron 24 Saturation Ferritin 35.7 Lactate 699 H Dehydrogenase Test 08/22/18 18:35 08/23/18 04:54 08/23/18 04:56 Prothrombin Time 19.6 H Prothrombin Time 1.5 Ratio INR International 1.65 Normalized Ratio Activated 50.1 H Partial Thromboplast Time Ammonia 96 #H 78 H Triglycerides Level 95 Cholesterol Level 169 LDL Cholesterol, 117 Calculated HDL Cholesterol 33 L Cholesterol/HDL 5.1 Ratio Thyroid Stimulating 0.177 L Hormone (TSH) White Blood Count 3.6 #L Red Blood Count 1.45 L Hemoglobin 5.7 *L Hematocrit 18.2 L Mean Corpuscular 125.5 H Volume Mean Corpuscular 39.3 H Hemoglobin Mean Corpuscular 31.3 L Hemoglobin Concent Red Cell 15.2 H Distribution Width Platelet Count 32 L Mean Platelet Volume 10.2 Immature 0.600 H Granulocytes % Neutrophils % 72.0 Lymphocytes % 18.6 Monocytes % 6.9 Eosinophils % 1.1 Basophils % 0.8 Nucleated Red Blood 0.0 Cells % Immature 0.020 Granulocytes # Neutrophils # 2.6 Lymphocytes # 0.7 L Monocytes # 0.3 Eosinophils # 0.0 Basophils # 0.0 Nucleated Red Blood 0.0 Cells # Sodium Level 139 Potassium Level 3.7 Chloride Level 107 Carbon Dioxide Level 23 Anion Gap 9 Blood Urea Nitrogen 3 L Creatinine 0.40 L Est Glomerular > 60 Filtrat Rate mL/min Glucose Level 155 Hemoglobin A1c Calcium Level 7.7 L Phosphorus Level 3.8 Magnesium Level 1.3 L Total Bilirubin 5.0 H Direct Bilirubin 2.10 #H Indirect Bilirubin 2.9 H Aspartate Amino 86 H Transf (AST/SGOT) Alanine 26 Aminotransferase (AL T/SGPT) Alkaline Phosphatase 263 H Total Protein 8.1 Albumin 2.6 L Lipase 129 Medications Medication Current Medications IV Flush (NS 3 ml) 3 ml PER PROTOCOL IV ; Start 08/22/18 at 17:30 Acetaminophen (Tylenol Tab) 650 mg Q6H PRN PO .PAIN 1-3 OR TEMP Last administered on 08/23/18at 05:08; Admin Dose 650 MG; Start 08/22/18 at 17:30 Acetaminophen/ Hydrocodone Bitart ([place] (5/325)) 1 tab Q6H PRN PO .MOD PAIN 4- 6; Start 08/22/18 at 17:30 Morphine Sulfate (morphine) 2 mg Q4H PRN IV .SEVERE PAIN 7-10; Start 08/22/18 at 17:30 Docusate Sodium (Colace) 100 mg Q12H PRN PO .CONSTIPATION; Start 08/22/18 at 17:30 Magnesium Hydroxide (Milk Of Mag) 30 ml DAILY PRN PO .CONSTIPATION; Start 08/22/18 at 17:30 Pantoprazole (Protonix Iv) 40 mg BID@0600,1800 IV Last administered on 08/23/18at 05:08; Admin Dose 40 MG; Start 08/23/18 at 06:00 Lorazepam (Ativan) 0.5 mg Q6H PRN IV ANXIETY; Start 08/22/18 at 17:30 Albuterol/ Ipratropium (Duoneb) 3 ml Q4H RESP THERAPY PRN HHN SHORTNESS OF BREATH; Start 08/22/18 at 17:30 Hydralazine HCl (Apresoline) 10 mg Q6H PRN IV ELEVATED BLOOD PRESSURE; Start 08/22/18 at 17:30 Nitroglycerin (Nitroglycerin (Sl Tab) 0.4 Mg) 1 tab Q5M PRN SL ANGINA; Start 08/22/18 at 17:30 Multivitamins 10 ml/Thiamine HCl 100 mg/Folic Acid 1 mg/Sodium Chloride 1,011.2 ml @ 125 mls/ hr DAILY@09 IVPB Last administered on 08/23/18at 08:49; Admin Dose 125 MLS/HR; Start 08/23/18 at 09:00 Nicotine (Nicoderm 14 Mg/ 24hr) 1 patch DAILY TRANSDERM Last administered on 08/22/18at 21:00; Admin Dose 1 PATCH; Start 08/22/18 at 19:30 Dextrose/Sodium Chloride 1,000 ml @ 100 mls/hr Q10H IV Last administered on 08/23/18at 00:47; Admin Dose 100 MLS/HR; Start 08/23/18 at 01:00 Lactulose (Enulose) 20 gm Q6 PO ; Start 08/23/18 at 12:00 Ondansetron HCl 8 mg/Sodium Chloride 54 ml @ 216 mls/hr Q6H PRN IV NAUSEA AND/OR VOMITING; Start 08/23/18 at 11:00 Prednisolone (Prelone) 40 mg DAILY PO ; Start 08/23/18 at 11:00; Status COLIN CARDENAS Aug 23, 2018 10:51
[2018-08-23] MEDS ORDERED: ONDANSETRON INJ 8 MG in SOD CHLORIDE 0.9% 50 ML IV PRN (11:00)
[2018-08-23] MEDS ORDERED: predniSOLONE (3 MG/ML) CUP PO SCH (11:00)
[2018-08-23] MEDS: NICOTINE (14 MG/24 HR) PATCH TRANSDERM SCH (11:14)
[2018-08-23] MEDS: METOCLOPRAMIDE 10 MG INJ IV PRN (11:14)
[2018-08-23] MEDS: LACTULOSE 30ML CUP PO SCH ×2 (11:14→17:38)
[2018-08-23] MEDS ORDERED: ONDANSETRON 4 MG INJ IV PRN (11:30)
[2018-08-23] MEDS: CEFTRIAXONE 1 GM/50 ML (PMX) 50 ML IVPB SCH (11:36)
[2018-08-23] MEDS ORDERED: MAGNESIUM SULFATE 3 GM in DEXTROSE 5% 100 ML IVPB ONE (12:00)
[2018-08-23] MEDS: predniSOLONE (3 MG/ML PO SYG) PO SCH (12:13)
--- NOTE | 2018-08-23 15:08 | CONS ---
Assessment/Plan Assessment/Plan Assessment/Plan (Daily) Assessment: Hematemesis - likely upper GI bleed possibly due to esophageal varices Severe anemia Thrombocytopenia Alcohol intoxication Alcoholic Cirrhosis -discriminant score 40.4 Hx of alcohol abuse Abdominal distentions likely secondary to ascites Hyperbilirubinemia Plan: Discussed the need for EGD tomorrow to evaluate source of bleeding and possible banding of varices. The risks, benefits, alternatives, risks and potential complications of EGD discussed with patient via a process automation engineer. She expressed understanding and is agreeable to proceed. Will start octreotide drip. Continue Protonix. Continue steroids. Titrate lactulose to 2-3 bowel movements daily. Abdominal US. Monitor H/H closely. Correct thrombocytopenia, receiving 1 unit of platelets. Transfuse for Hgb <7 Patient seen in collaboration with Dr. Hernández CC: VISHAL HERNÁNDEZ ; Consultation Date/Type/Reason Admit Date/Time Aug 22, 2018 at 15:29 Date of Consultation: Aug 23, 2018 Type of Consult gastroenterology Reason for Consultation anemia, hematemesis, alcoholic cirrhosis Date/Time of Note DATE: 08/23/18 TIME: 14:47 Hx of Present Illness 37 y/o woman who reports she drank 1 beer yesterday and vomited blood. She thus presented to the ER. She does have a history of alcoholic cirrhosis and prior hospital admissions for this. She reports she has been drinking for 15 years, however unclear how much. She was found to be severely anemia and given a PRBC transfusion. She denies any rectal bleeding, melanotic stools, diarrhea, abdominal pain, fevers, chills, weakness. She reports a prior history of c- section and hysterectomy and "liver issues". A 10 point review of systems is otherwise negative except as mentioned in the above HPI or here. Constitutional: no complaints, requiring IVF Eyes: no complaints ENT: no complaints Respiratory: no complaints Cardiovascular: no complaints Gastrointestinal: vomiting (vomiting blood) Genitourinary: no complaints Musculoskeletal: no complaints Skin: no complaints Neurologic: no complaints Lymphatic: no complaints Psychological: no complaints Immunologic: no complaints Past Medical History Home Meds Discontinued Scripts Permethrin* (Elimite*) 5% Cr, 1 APPLIC TOP ONCE, #1 TUB Prov:GENESIS HAGER PA-C 07/06/18 Sodium Chloride (Saline Nasal [place]) 30 Ml [place], 30 ML NS BID , #1 SPRAY Prov:GENESIS HAGER PA-C 06/22/18 Thiamine* (Vitamin B-1*) 100 Mg Tablet, 100 MG PO DAILY for 30 Days, #30 TAB 6 Refills Prov:TRANG GARCIA MD 03/24/18 Multivitamins* (Theragran*) 1 Tab Tab, 1 TAB PO DAILY for 30 Days, #30 TAB 6 Refills Prov:TRANG GARCIA MD 03/24/18 Folic Acid* (Folic Acid*) 1 Mg Tablet, 1 MG PO DAILY for 30 Days, #30 TAB 6 Refills Prov:TRANG GARCIA MD 03/24/18 Furosemide (Lasix) 20 Mg Tab, 20 MG PO BID DIURETICS for 30 Days, #60 TAB 6 Refills Prov:TRANG GARCIA MD 03/24/18 Spironolactone* (Aldactone*) 50 Mg Tablet, 50 MG PO DAILY for 30 Days, #30 TAB 6 Refills Prov:TRANG GARCIA MD 03/24/18 Propranolol Hcl* (Propranolol Hcl*) 10 Mg Tablet, 10 MG PO BID for 30 Days, #60 TAB 6 Refills Prov:TRANG GARCIA MD 03/24/18 Pantoprazole* (Pantoprazole*) 40 Mg Tablet.dr, 40 MG PO BID@06,18 for 30 Days, #60 TAB 6 Refills Prov:TRANG GARCIA MD 03/14/18 Medications Current Medications IV Flush (NS 3 ml) 3 ml PER PROTOCOL IV ; Start 08/22/18 at 17:30 Acetaminophen (Tylenol Tab) 650 mg Q6H PRN PO .PAIN 1-3 OR TEMP Last administered on 08/23/18at 05:08; Admin Dose 650 MG; Start 08/22/18 at 17:30 Acetaminophen/ Hydrocodone Bitart ([place] (5/325)) 1 tab Q6H PRN PO .MOD PAIN 4- 6; Start 08/22/18 at 17:30 Morphine Sulfate (morphine) 2 mg Q4H PRN IV .SEVERE PAIN 7-10; Start 08/22/18 at 17:30 Docusate Sodium (Colace) 100 mg Q12H PRN PO .CONSTIPATION; Start 08/22/18 at 1 7:30 Magnesium Hydroxide (Milk Of Mag) 30 ml DAILY PRN PO .CONSTIPATION; Start 08/22/18 at 17:30 Pantoprazole (Protonix Iv) 40 mg BID@0600,1800 IV Last administered on 08/23/18at 05:08; Admin Dose 40 MG; Start 08/23/18 at 06:00 Lorazepam (Ativan) 0.5 mg Q6H PRN IV ANXIETY; Start 08/22/18 at 17:30 Albuterol/ Ipratropium (Duoneb) 3 ml Q4H RESP THERAPY PRN HHN SHORTNESS OF BREATH; Start 08/22/18 at 17:30 Hydralazine HCl (Apresoline) 10 mg Q6H PRN IV ELEVATED BLOOD PRESSURE; Start 08/22/18 at 17:30 Nitroglycerin (Nitroglycerin (Sl Tab) 0.4 Mg) 1 tab Q5M PRN SL ANGINA; Start 08/22/18 at 17:30 Multivitamins 10 ml/Thiamine HCl 100 mg/Folic Acid 1 mg/Sodium Chloride 1,011.2 ml @ 125 mls/ hr DAILY@09 IVPB Last administered on 08/23/18at 08:49; Admin Dose 125 MLS/HR; Start 08/23/18 at 09:00 Nicotine (Nicoderm 14 Mg/ 24hr) 1 patch DAILY TRANSDERM Last administered on 08/23/18at 11:14; Admin Dose 1 PATCH; Start 08/22/18 at 19:30 Lactulose (Enulose) 20 gm Q6 PO Last administered on 08/23/18at 11:14; Admin Dose 20 GM; Start 08/23/18 at 12:00 Ondansetron HCl 8 mg/Sodium Chloride 54 ml @ 216 mls/hr Q6H PRN IV NAUSEA AND/OR VOMITING; Start 08/23/18 at 11:00 Metoclopramide HCl (Reglan) 10 mg Q6H PRN IV NAUSEA AND/OR VOMITING Last administered on 08/23/18at 11:14; Admin Dose 10 MG; Start 08/23/18 at 11:00 Magnesium Sulfate 3 gm/Dextrose 106 ml @ 35.333 mls/ hr ONCE ONCE IVPB Last administered on 08/23/18at 12:13; Admin Dose 35.333 MLS/HR; Start 08/23/18 at 12:00; Stop 08/23/18 at 14:59 Ceftriaxone Sodium 50 ml @ 100 mls/hr Q24H IVPB Last administered on 08/23/18at 11:36; Admin Dose 100 MLS/HR; Start 08/23/18 at 11:00 Prednisolone (Prelone (Ped)) 40 mg DAILY PO Last administered on 08/23/18at 12:13; Admin Dose 40 MG; Start 08/23/18 at 12:30; Stop 09/19/18 at 12:29 Allergies: Coded Allergies: No Known Drug Allergy (Verified Allergy, Unknown, 08/22/18) Social History Smoking Status: Never smoker Exam/Review of Systems Exam Vitals Vital Signs Date Temp Pulse Resp B/P (MAP) Pulse Ox O2 O2 Flow FiO2 Time Delivery Rate 08/23/18 97 12:26 08/23/18 98.0 20 120/72 99 12:13 (88) 08/22/18 Room Air 17:46 Intake and Output 08/22/18 08/22/18 08/23/18 1515:00 23:00 07:00 IntakeIntake Total 1000 ml 100 ml 500 ml BalanceBalance 1000 ml 100 ml 500 ml Constitutional: alert, oriented, well developed Psych: no complaints, nl mood/affect Head: normocephalic, atraumatic Eyes: icteric ENMT: nl external ears & nose, mucosa pink and moist, other (ammonia smell on breath, ecchymotic lip lesions) Neck: supple, non-tender Respiratory: clear to auscultation, normal air movement Cardiovascular: regular rate and rhythm, nl pulses Gastrointestinal: non-tender, distended (ascites) Genitourinary - Female: nl external genitalia Extremities: normal pulses Neurological: INDIVIDUAL PENSION CONSULTANT II-XII intact, nl mental status, nl speech Skin: nl turgor Lymph: nl lymph nodes Results Result Diagram: 08/23/18 1402 08/23/18 0456 Results 24hrs Laboratory Tests Test 08/22/18 18:35 08/23/18 04:54 08/23/18 04:56 08/23/18 14:02 Prothrombin Time 19.6 H Prothrombin Time 1.5 Ratio INR International 1.65 Normalized Ratio Activated 50.1 H Partial Thromboplast Time Ammonia 96 #H 78 H Triglycerides Level 95 Cholesterol Level 169 LDL Cholesterol, 117 Calculated HDL Cholesterol 33 L Cholesterol/HDL 5.1 Ratio Thyroid Stimulating 0.177 L Hormone (TSH) White Blood Count 3.6 #L Red Blood Count 1.45 L Hemoglobin 5.7 *L 9.1 #L Hematocrit 18.2 L 27.5 #L Mean Corpuscular 125.5 H Volume Mean Corpuscular 39.3 H Hemoglobin Mean Corpuscular 31.3 L Hemoglobin Concent Red Cell 15.2 H Distribution Width Platelet Count 32 L Mean Platelet Volume 10.2 Immature 0.600 H Granulocytes % Neutrophils % 72.0 Lymphocytes % 18.6 Monocytes % 6.9 Eosinophils % 1.1 Basophils % 0.8 Nucleated Red Blood 0.0 Cells % Immature 0.020 Granulocytes # Neutrophils # 2.6 Lymphocytes # 0.7 L Monocytes # 0.3 Eosinophils # 0.0 Basophils # 0.0 Nucleated Red Blood 0.0 Cells # Sodium Level 139 Potassium Level 3.7 Chloride Level 107 Carbon Dioxide Level 23 Anion Gap 9 Blood Urea Nitrogen 3 L Creatinine 0.40 L Est Glomerular > 60 Filtrat Rate mL/min Glucose Level 155 Hemoglobin A1c Calcium Level 7.7 L Phosphorus Level 3.8 Magnesium Level 1.3 L Total Bilirubin 5.0 H Direct Bilirubin 2.10 #H Indirect Bilirubin 2.9 H Aspartate Amino 86 H Transf (AST/SGOT) Alanine 26 Aminotransferase (AL T/SGPT) Alkaline Phosphatase 263 H Total Protein 8.1 Albumin 2.6 L Lipase 129 Medications Medication Current Medications IV Flush (NS 3 ml) 3 ml PER PROTOCOL IV ; Start 08/22/18 at 17:30 Acetaminophen (Tylenol Tab) 650 mg Q6H PRN PO .PAIN 1-3 OR TEMP Last admini stered on 08/23/18at 05:08; Admin Dose 650 MG; Start 08/22/18 at 17:30 Acetaminophen/ Hydrocodone Bitart ([place] (5/325)) 1 tab Q6H PRN PO .MOD PAIN 4- 6; Start 08/22/18 at 17:30 Morphine Sulfate (morphine) 2 mg Q4H PRN IV .SEVERE PAIN 7-10; Start 08/22/18 at 17:30 Docusate Sodium (Colace) 100 mg Q12H PRN PO .CONSTIPATION; Start 08/22/18 at 17:30 Magnesium Hydroxide (Milk Of Mag) 30 ml DAILY PRN PO .CONSTIPATION; Start 08/22/18 at 17:30 Pantoprazole (Protonix Iv) 40 mg BID@0600,1800 IV Last administered on 08/23/18 05:08; Admin Dose 40 MG; Start 08/23/18 at 06:00 Lorazepam (Ativan) 0.5 mg Q6H PRN IV ANXIETY; Start 08/22/18 at 17:30 Albuterol/ Ipratropium (Duoneb) 3 ml Q4H RESP THERAPY PRN HHN SHORTNESS OF BREATH; Start 08/22/18 at 17:30 Hydralazine HCl (Apresoline) 10 mg Q6H PRN IV ELEVATED BLOOD PRESSURE; Start 08/22/18 at 17:30 Nitroglycerin (Nitroglycerin (Sl Tab) 0.4 Mg) 1 tab Q5M PRN SL ANGINA; Start 08/22/18 at 17:30 Multivitamins 10 ml/Thiamine HCl 100 mg/Folic Acid 1 mg/Sodium Chloride 1,011.2 ml @ 125 mls/ hr DAILY@09 IVPB Last administered on 08/23/18 08:49; Admin Dose 125 MLS/HR; Start 08/23/18 at 09:00 Nicotine (Nicoderm 14 Mg/ 24hr) 1 patch DAILY TRANSDERM Last administered on 08/23/18 11:14; Admin Dose 1 PATCH; Start 08/22/18 at 19:30 Lactulose (Enulose) 20 gm Q6 PO Last administered on 08/23/18 11:14; Admin Dose 20 GM; Start 08/23/18 at 12:00 Ondansetron HCl 8 mg/Sodium Chloride 54 ml @ 216 mls/hr Q6H PRN IV NAUSEA AND/OR VOMITING; Start 08/23/18 at 11:00 Metoclopramide HCl (Reglan) 10 mg Q6H PRN IV NAUSEA AND/OR VOMITING Last administered on 08/23/18 11:14; Admin Dose 10 MG; Start 08/23/18 at 11:00 Magnesium Sulfate 3 gm/Dextrose 106 ml @ 35.333 mls/ hr ONCE ONCE IVPB Last administered on 08/23/18 12:13; Admin Dose 35.333 MLS/HR; Start 08/23/18 at 12:00; Stop 08/23/18 at 14:59 Ceftriaxone Sodium 50 ml @ 100 mls/hr Q24H IVPB Last administered on 08/23/18 11:36; Admin Dose 100 MLS/HR; Start 08/23/18 at 11:00 Prednisolone (Prelone (Ped)) 40 mg DAILY PO Last administered on 08/23/18at 12:13; Admin Dose 40 MG; Start 08/23/18 at 12:30; Stop 09/19/18 at 12:29 MALLORIE REEVES NP Aug 23, 2018 15:00
[2018-08-23] MEDS: OCTREOTIDE 500 MCG in DEXTROSE 5% 49 ML IV SCH (17:38)
[2018-08-24] VITALS (20 sets, daily range): BP systolic 94–133; BP diastolic 62–79; PULSE 70–106; RESP 12–20
[2018-08-24] MEDS: LACTULOSE 30ML CUP PO SCH ×4 (00:28→18:37)
[2018-08-24] MEDS: PANTOPRAZOLE 40 MG INJ IV SCH ×2 (05:20→18:37)
[2018-08-24] MEDS: predniSOLONE (3 MG/ML PO SYG) PO SCH (08:01)
[2018-08-24] MEDS: MULTIVITAMINS 10 ML, THIAMINE 100 MG, FOLIC ACID 1 MG in SOD CHLORIDE 0.9% 1,000 ML IVPB SCH (08:01)
[2018-08-24] MEDS: NICOTINE (14 MG/24 HR) PATCH TRANSDERM SCH (08:02)
[2018-08-24] MEDS: CEFTRIAXONE 1 GM/50 ML (PMX) 50 ML IVPB SCH (10:55)
[2018-08-24] MEDS: OCTREOTIDE 500 MCG in DEXTROSE 5% 49 ML IV SCH (10:56)
--- NOTE | 2018-08-24 16:25 | PN ---
Date/Time of Note Date/Time of Note DATE: 08/24/18 TIME: 16:21 Assessment/Plan VTE Prophylaxis Risk score (from Ns)>0 risk: 1 SCD applied (from Ns): No SCD contraindicated: low risk/ambulating Pharmacological prophylaxis: NA/contraindicated Pharm contraindication: bleeding Lines/Catheters IV [facility] Peripheral IV Assessment/Plan Assessment/Plan ASSESSMENT AND PLAN: 37-year-old female coming in with weakness and alcohol intoxication and anemia secondary to upper gastrointestinal bleeding, most likely with a prior history of cirrhosis and alcohol abuse and failure to thrive and diabetes. # Anemia + hematemesis -hemoglobin on admission 6 range - PPI drip and octreotide currently. - Patient has a history of cirrhosis and alcohol abuse history and she admits to drinking recently and her blood alcohol level was elevated on admission, as well as her ammonia levels. -Plan for EGD today. # Alcohol hepatitis + intoxication - LFTs are elevated, including total bilirubin 3.8 on admission, today 5. Discriminate function score appears to be in the 36-42 range. -Follow GI recommendations, for now start her on prednisone 40 mg a day, treat for 28 days if okay with GI team -For alcohol intoxication, continue banana bag, Ativan q.1 hours p.r.n. signs of withdrawal and agitation. If these symptoms worsen, consider Librium administration. -Soft hepatic diet # History of diabetes -sugar stable, A1c result not back yet - continue sliding scale insulin. # History of alcoholic cirrhosis. Again, counseled on cessation, see #1. # Gastrointestinal prophylaxis- proton pump inhibitor IV Result Diagram: 08/24/18 0548 08/23/18 0456 Subjective 24 Hr Interval Summary Free Text/Dictation No acute overnight events. Patient NPO. Denies nausea. Plan for EGD today. Normal sinus on telemetry. Exam/Review of Systems Exam Vitals Vital Signs Date Temp Pulse Resp B/P (MAP) Pulse Ox O2 O2 Flow FiO2 Time Delivery Rate 08/24/18 98.0 90 18 118/73 98 15:46 (88) 08/24/18 Room Air 11:35 Intake and Output 08/23/18 08/23/18 08/24/18 1515:00 23:00 07:00 IntakeIntake Total 300 ml 2297.5 ml BalanceBalance 300 ml 2297.5 ml Exam GENERAL: Very thin woman lying in bed, no acute distress HEENT: pupils equal, round, reactive to light, extraocular muscles intact. NECK: Supple, no thyromegaly. LUNGS: Slightly decreased breath sounds bilaterally. CARDIOVASCULAR: S1, S2 heard. No rubs or gallops. ABDOMEN: Soft, nontender. There is no hepatomegaly noted, nondistended. No rebound or guarding. Normal bowel sounds. MUSCULOSKELETAL: No lower extremity edema bilaterally. Results Results 24hrs Laboratory Tests Test 08/24/18 05:48 White Blood Count 5.3 # Red Blood Count 2.56 #L Hemoglobin 9.4 L Hematocrit 27.2 L Mean Corpuscular Volume 106.3 H Mean Corpuscular Hemoglobin 36.7 H Mean Corpuscular Hemoglobin Concent 34.6 Red Cell Distribution Width Platelet Count 48 #L Mean Platelet Volume 10.4 Immature Granulocytes % 0.800 H Neutrophils % Segmented Neutrophils % (Manual) 81 H Band Neutrophils % (Manual) 13 H Lymphocytes % Lymphocytes % (Manual) 6 L Monocytes % Eosinophils % Basophils % Nucleated Red Blood Cells % 0.0 Immature Granulocytes # 0.040 H Neutrophils # Neutrophils # (Manual) 4.3 Band Neutrophils # 0.6 Lymphocytes (Manual) 0.3 L Lymphocytes # Monocytes # Eosinophils # Basophils # Nucleated Red Blood Cells # Platelet Estimate DECREASED Polychromasia 2+ Poikilocytosis 1+ Anisocytosis 2+ Macrocytosis 2+ Ovalocytes 1+ Phosphorus Level 3.6 Magnesium Level 1.6 L Total Bilirubin 8.7 #H Direct Bilirubin 4.10 #H Indirect Bilirubin 4.6 H Aspartate Amino Transf (AST/SGOT) 66 H Alanine Aminotransferase (ALT/SGPT) 21 Alkaline Phosphatase 264 H Ammonia 88 H Total Protein 8.8 H Albumin 3.0 L Medications Medication Current Medications IV Flush (NS 3 ml) 3 ml PER PROTOCOL IV ; Start 08/22/18 at 17:30 Acetaminophen (Tylenol Tab) 650 mg Q6H PRN PO .PAIN 1-3 OR TEMP Last administered on 08/23/18at 05:08; Admin Dose 650 MG; Start 08/22/18 at 17:30 Acetaminophen/ Hydrocodone Bitart ([place] (5/325)) 1 tab Q6H PRN PO .MOD PAIN 4- 6; Start 08/22/18 at 17:30 Morphine Sulfate (morphine) 2 mg Q4H PRN IV .SEVERE PAIN 7-10; Start 08/22/18 at 17:30 Docusate Sodium (Colace) 100 mg Q12H PRN PO .CONSTIPATION; Start 08/22/18 at 17:30 Magnesium Hydroxide (Milk Of Mag) 30 ml DAILY PRN PO .CONSTIPATION; Start 08/22/18 at 17:30 Pantoprazole (Protonix Iv) 40 mg BID@0600,1800 IV Last administered on 08/24/18at 05:20; Admin Dose 40 MG; Start 08/23/18 at 06:00 Lorazepam (Ativan) 0.5 mg Q6H PRN IV ANXIETY; Start 08/22/18 at 17:30 Albuterol/ Ipratropium (Duoneb) 3 ml Q4H RESP THERAPY PRN HHN SHORTNESS OF BREATH; Start 08/22/18 at 17:30 Hydralazine HCl (Apresoline) 10 mg Q6H PRN IV ELEVATED BLOOD PRESSURE; Start 08/22/18 at 17:30 Nitroglycerin (Nitroglycerin (Sl Tab) 0.4 Mg) 1 tab Q5M PRN SL ANGINA; Start 08/22/18 at 17:30 Multivitamins 10 ml/Thiamine HCl 100 mg/Folic Acid 1 mg/Sodium Chloride 1,011.2 ml @ 125 mls/ hr DAILY@09 IVPB Last administered on 08/24/18at 08:01; Admin Dose 125 MLS/HR; Start 08/23/18 at 09:00 Nicotine (Nicoderm 14 Mg/ 24hr) 1 patch DAILY TRANSDERM Last administered on 08/24/18at 08:02; Admin Dose 1 PATCH; Start 08/22/18 at 19:30 Lactulose (Enulose) 20 gm Q6 PO Last administered on 08/24/18at 05:20; Admin Dose 20 GM; Start 08/23/18 at 12:00 Ondansetron HCl 8 mg/Sodium Chloride 54 ml @ 216 mls/hr Q6H PRN IV NAUSEA AND /OR VOMITING; Start 08/23/18 at 11:00 Metoclopramide HCl (Reglan) 10 mg Q6H PRN IV NAUSEA AND/OR VOMITING Last administered on 08/23/18at 11:14; Admin Dose 10 MG; Start 08/23/18 at 11:00 Ceftriaxone Sodium 50 ml @ 100 mls/hr Q24H IVPB Last administered on 08/24/18at 10:55; Admin Dose 100 MLS/HR; Start 08/23/18 at 11:00 Prednisolone (Prelone (Ped)) 40 mg DAILY PO Last administered on 08/23/18at 12: 13; Admin Dose 40 MG; Start 08/23/18 at 12:30; Stop 09/19/18 at 12:29 Octreotide Acetate 500 mcg/ Dextrose 50 ml @ 2.5 mls/hr Q20H IV Last administered on 08/24/18at 10:56; Admin Dose 2.5 MLS/HR; Start 08/23/18 at 16:00 ANASTASIA MARTIN MD Aug 24, 2018 16:25
[2018-08-24] MEDS ORDERED: MAGNESIUM SULFATE 2 GM/50 ML 50 ML IVPB ONE (16:30)
--- NOTE | 2018-08-24 16:31 | PREAC ---
Date/Time of Note Date/Time of Note DATE: 08/24/18 TIME: 16:28 Anesthesia Eval and Record Evaluation Time Pre-Procedure Interview DATE: 08/24/18 TIME: 16:28 Age 37 Sex female NPO: 8 hrs Preoperative diagnosis GI bleed Planned procedure EGD Past Medical History Past Medical History: Includes Cardio: Dyslipidemia Endo: Diabetes Hepatic: Alcohol abuse, Cirrhosis Heme: Anemia, Thrombocytopenia Surgery & Anesthesia Issues No known issue Meds Anticoagulation: No Beta Hebert within 24 hr: No Reason Beta Hebert not given: Pt. not on B-Hebert Discontinued Scripts Permethrin* (Elimite*) 5% Cr, 1 APPLIC TOP ONCE, #1 TUB Prov:GENESIS HAGER PA-C 07/06/18 Sodium Chloride (Saline Nasal [place]) 30 Ml [place], 30 ML NS BID , #1 SPRAY Prov:GENESIS HAGER PA-C 06/22/18 Thiamine* (Vitamin B-1*) 100 Mg Tablet, 100 MG PO DAILY for 30 Days, #30 TAB 6 Refills Prov:TRANG GARCIA MD 03/24/18 Multivitamins* (Theragran*) 1 Tab Tab, 1 TAB PO DAILY for 30 Days, #30 TAB 6 Refills Prov:TRANG GARCIA MD 03/24/18 Folic Acid* (Folic Acid*) 1 Mg Tablet, 1 MG PO DAILY for 30 Days, #30 TAB 6 Refills Prov:TRANG GARCIA MD 03/24/18 Furosemide (Lasix) 20 Mg Tab, 20 MG PO BID DIURETICS for 30 Days, #60 TAB 6 Refills Prov:TRANG GARCIA MD 03/24/18 Spironolactone* (Aldactone*) 50 Mg Tablet, 50 MG PO DAILY for 30 Days, #30 TAB 6 Refills Prov:TRANG GARCIA MD 03/24/18 Propranolol Hcl* (Propranolol Hcl*) 10 Mg Tablet, 10 MG PO BID for 30 Days, #60 TAB 6 Refills Prov:TRANG GARCIA MD 03/24/18 Pantoprazole* (Pantoprazole*) 40 Mg Tablet.dr, 40 MG PO BID@06,18 for 30 Days, #60 TAB 6 Refills Prov:TRANG GARCIA MD 03/14/18 Current Medications IV Flush (NS 3 ml) 3 ml PER PROTOCOL IV ; Start 08/22/18 at 17:30 Acetaminophen (Tylenol Tab) 650 mg Q6H PRN PO .PAIN 1-3 OR TEMP Last administered on 08/23/18at 05:08; Admin Dose 650 MG; Start 08/22/18 at 17:30 Acetaminophen/ Hydrocodone Bitart ([place] (5/325)) 1 tab Q6H PRN PO .MOD PAIN 4- 6; Start 08/22/18 at 17:30 Morphine Sulfate (morphine) 2 mg Q4H PRN IV .SEVERE PAIN 7-10; Start 08/22/18 at 17:30 Docusate Sodium (Colace) 100 mg Q12H PRN PO .CONSTIPATION; Start 08/22/18 at 17:30 Magnesium Hydroxide (Milk Of Mag) 30 ml DAILY PRN PO .CONSTIPATION; Start 08/22/18 at 17:30 Pantoprazole (Protonix Iv) 40 mg BID@0600,1800 IV Last administered on 08/24/18at 05:20; Admin Dose 40 MG; Start 08/23/18 at 06:00 Lorazepam (Ativan) 0.5 mg Q6H PRN IV ANXIETY; Start 08/22/18 at 17:30 Albuterol/ Ipratropium (Duoneb) 3 ml Q4H RESP THERAPY PRN HHN SHORTNESS OF BREATH; Start 08/22/18 at 17:30 Hydralazine HCl (Apresoline) 10 mg Q6H PRN IV ELEVATED BLOOD PRESSURE; Start 08/22/18 at 17:30 Nitroglycerin (Nitroglycerin (Sl Tab) 0.4 Mg) 1 tab Q5M PRN SL ANGINA; Start 08/22/18 at 17:30 Multivitamins 10 ml/Thiamine HCl 100 mg/Folic Acid 1 mg/Sodium Chloride 1,011.2 ml @ 125 mls/ hr DAILY@09 IVPB Last administered on 08/24/18at 08:01; Admin Dose 125 MLS/HR; Start 08/23/18 at 09:00 Nicotine (Nicoderm 14 Mg/ 24hr) 1 patch DAILY TRANSDERM Last administered on 08/24/18at 08:02; Admin Dose 1 PATCH; Start 08/22/18 at 19:30 Lactulose (Enulose) 20 gm Q6 PO Last administered on 08/24/18at 05:20; Admin Dose 20 GM; Start 08/23/18 at 12:00 Ondansetron HCl 8 mg/Sodium Chloride 54 ml @ 216 mls/hr Q6H PRN IV NAUSEA AND/OR VOMITING; Start 08/23/18 at 11:00 Metoclopramide HCl (Reglan) 10 mg Q6H PRN IV NAUSEA AND/OR VOMITING Last administered on 08/23/18at 11:14; Admin Dose 10 MG; Start 08/23/18 at 11:00 Ceftriaxone Sodium 50 ml @ 100 mls/hr Q24H IVPB Last administered on 08/24/18at 10:55; Admin Dose 100 MLS/HR; Start 08/23/18 at 11:00 Prednisolone (Prelone (Ped)) 40 mg DAILY PO Last administered on 08/23/18at 12:13; Admin Dose 40 MG; Start 08/23/18 at 12:30; Stop 09/19/18 at 12:29 Octreotide Acetate 500 mcg/ Dextrose 50 ml @ 2.5 mls/hr Q20H IV Last administered on 08/24/18at 10:56; Admin Dose 2.5 MLS/HR; Start 08/23/18 at 16:00 Magnesium Sulfate 50 ml @ 25 mls/hr ONCE ONCE IVPB ; Start 08/24/18 at 16:30; Stop 08/24/18 at 18:29 Meds reviewed: Yes Allergies Coded Allergies: No Known Drug Allergy (Verified Allergy, Unknown, 08/22/18) Allergies Reviewed: Yes Labs/Studies Labs Reviewed: Reviewed by anesthesiologist Result Diagram: 08/24/18 0548 08/23/18 0456 Laboratory Tests 08/24/18 05:48 test: Negative Studies: ECG (n/a), CXR (n/a) Pre-procedure Exam Last vitals Vital Signs Date Temp Pulse Resp B/P (MAP) Pulse Ox O2 O2 Flow FiO2 Time Delivery Rate 08/24/18 98.0 90 18 118/73 98 15:46 (88) 08/24/18 Room Air 11:35 Airway: Adequate mouth opening, Adequate thyromental dist Mallampati: Mallampati II Teeth: Normal Lung: Normal Heart: Normal ASA Physical Status ASA physical status: 3 Emergency: None Planned Anesthetic General/MAC: MAC Planned Pain Management Parenteral pain med Pre-operative Attestations Prior to commencing anesthesia and surgery, the patient was re-evaluated, there was verification of: *The patient's identity *The results of appropriate recent lab work and preoperative vital signs *The above evaluation not changing prior to induction *Anesthetic plan, risk benefits, alternative and complications discussed with patient/family; questions answered; patient/family understands, accepts and wishes to proceed. ZAID ZULETA MD Aug 24, 2018 16:31
[2018-08-24] MEDS ORDERED: PROPOFOL 40 ML ONE (17:16)
--- NOTE | 2018-08-24 18:22 | PAC ---
Date/Time of Note Date/Time of Note DATE: 08/24/18 TIME: 18:21 Post-Anesthesia Notes Post-Anesthesia Note Last documented vital signs Vital Signs Date Temp Pulse Resp B/P (MAP) Pulse Ox O2 O2 Flow FiO2 Time Delivery Rate 08/24/18 98.7 70 16 105/67 93 Room Air 17:55 (80) 08/24/18 98.7 17:25 08/24/18 10 16:39 Activity: WNL Respiratory function: WNL Cardiovascular function: WNL Mental status: Baseline Pain reasonably controlled: Yes Hydration appropriate: Yes Nausea/Vomiting absent: Yes ZAID ZULETA MD Aug 24, 2018 18:22
[2018-08-24] MEDS: METOCLOPRAMIDE 10 MG INJ IV PRN (19:01)
[2018-08-25] VITALS (8 sets, daily range): BP systolic 103–122; BP diastolic 61–75; PULSE 71–94; RESP 18–20
[2018-08-25] MEDS: LACTULOSE 30ML CUP PO SCH ×2 (06:49)
[2018-08-25] MEDS: PANTOPRAZOLE 40 MG INJ IV SCH (06:49)
--- NOTE | 2018-08-25 09:51 | PN ---
Date/Time of Note Date/Time of Note DATE: 08/25/18 TIME: 09:45 Assessment/Plan VTE Prophylaxis Risk score (from Nsg)>0 risk: 1 SCD applied (from Nsg): No SCD contraindicated: other (scds) Pharmacological prophylaxis: NA/contraindicated, other Pharm contraindication: bleeding Lines/Catheters IV [facility] ([facility] Peripheral IV Assessment/Plan Hospital Course Assessment: Hematemesis EGD 08/24/1819 Grade 3/4 esophageal varices Post endoscopic variceal ligation x6 Otherwise normal EGD Macrocytic anemia Decompensated alcoholic Cirrhosis- with sequela Thrombocytopenia Coagulopathy Elevated LFTs with hyperbilirubinemia -Ascites Alcoholic hepatitis -DF 40.4 Alcohol intoxication -Hx of alcohol abuse Homelessness Plan: Soft 2 gm NA diet for lunch- monitor weight daily SW- to discuss possible rehab after discharge for ETOH abuse Monitor labs Menses for hemoglobin less than 7.5 to goal of 9 Continue ABX- Continue lactulose titrate to 3 bowel movements per day we will add Xifaxan Add propranolol 10 mg twice daily as BP will allow We will start propranolol 10 mg twice daily as blood pressure can tolerate Patient will need to follow-up with GI after discharge and repeat EGD in 3-month Patient seen in collaboration with Dr. Helton Subjective: Course reviewed with nursing staff Patient interviewed and examined All labs, imaging and other results reviewed The patient sleeping in bed easily awakened and is at her bedside Patient complains of upper abdominal pain discussed results of EGD. Discussed abstinence and consideration of rehab for EtOH abuse. We will continue to monitor. PHYSICAL EXAMINATION: GENERAL: Disheveled, alert & oriented x 3, in no acute distress jaundice SKIN: No lesions HEAD: Normocephalic, atraumatic, no tenderness. EYES: Pupils equal reactive to light, icteric, no discharge. EARS/NOSE AND THROAT: Ears normal, nose normal, oropharynx normal, oral membranes well hydrated without lesions. NECK: Supple, no masses CHEST: Inspection within normal limits. CARDIOVASCULAR: Heart: Regular rate and rhythm, RESPIRATORY: Lungs clear to auscultation GASTROINTESTINAL AND LIVER: Abdomen: Soft, gastric tenderness, mildly distended, no hernias, no masses, no organomegaly, ascites, no guarding, no rebound tenderness, normoactive bowel sounds. Rectal: Deferred. EXTREMITIES: No cyanosis, clubbing or edema. Result Diagram: 08/25/18 0553 08/23/18 0456 Results 24hrs Laboratory Tests Test 08/24/18 16:27 08/25/18 05:53 Bedside Glucose 105 White Blood Count 5.1 Red Blood Count 2.51 L Hemoglobin 9.1 L Hematocrit 27.1 L Mean Corpuscular Volume 108.0 H Mean Corpuscular Hemoglobin 36.3 H Mean Corpuscular Hemoglobin Concent 33.6 Red Cell Distribution Width Platelet Count 42 L Mean Platelet Volume 10.5 H Immature Granulocytes % 0.600 H Neutrophils % 80.2 H Lymphocytes % 11.7 L Monocytes % 6.3 Eosinophils % 0.6 Basophils % 0.6 Nucleated Red Blood Cells % 0.0 Immature Granulocytes # 0.030 Neutrophils # 4.1 Lymphocytes # 0.6 L Monocytes # 0.3 Eosinophils # 0.0 Basophils # 0.0 Nucleated Red Blood Cells # 0.0 Total Bilirubin 7.1 H Direct Bilirubin 3.90 H Indirect Bilirubin 3.2 H Aspartate Amino Transf (AST/SGOT) 65 H Alanine Aminotransferase (ALT/SGPT) 21 Alkaline Phosphatase 241 H Total Protein 8.6 H Albumin 2.9 L Exam/Review of Systems Exam Vitals Vital Signs Date Temp Pulse Resp B/P (MAP) Pulse Ox O2 O2 Flow FiO2 Time Delivery Rate 08/25/18 73 08:35 08/25/18 98.0 20 105/62 98 07:31 (76) 08/25/18 Room Air 04:17 08/24/18 10 16:39 Intake and Output 08/24/18 08/24/18 08/25/18 1515:00 23:00 07:00 IntakeIntake Total 120 ml 100 ml BalanceBalance 120 ml 100 ml Results Results 24hrs Laboratory Tests Test 08/24/18 16:27 08/25/18 05:53 Bedside Glucose 105 White Blood Count 5.1 Red Blood Count 2.51 L Hemoglobin 9.1 L Hematocrit 27.1 L Mean Corpuscular Volume 108.0 H Mean Corpuscular Hemoglobin 36.3 H Mean Corpuscular Hemoglobin Concent 33.6 Red Cell Distribution Width Platelet Count 42 L Mean Platelet Volume 10.5 H Immature Granulocytes % 0.600 H Neutrophils % 80.2 H Lymphocytes % 11.7 L Monocytes % 6.3 Eosinophils % 0.6 Basophils % 0.6 Nucleated Red Blood Cells % 0.0 Immature Granulocytes # 0.030 Neutrophils # 4.1 Lymphocytes # 0.6 L Monocytes # 0.3 Eosinophils # 0.0 Basophils # 0.0 Nucleated Red Blood Cells # 0.0 Total Bilirubin 7.1 H Direct Bilirubin 3.90 H Indirect Bilirubin 3.2 H Aspartate Amino Transf (AST/SGOT) 65 H Alanine Aminotransferase (ALT/SGPT) 21 Alkaline Phosphatase 241 H Total Protein 8.6 H Albumin 2.9 L Medications Medication Current Medications IV Flush (NS 3 ml) 3 ml PER PROTOCOL IV ; Start 08/22/18 at 17:30 Acetaminophen (Tylenol Tab) 650 mg Q6H PRN PO .PAIN 1-3 OR TEMP Last administered on 08/23/18at 05:08; Admin Dose 650 MG; Start 08/22/18 at 17:30 Acetaminophen/ Hydrocodone Bitart ([place] (5/325)) 1 tab Q6H PRN PO .MOD PAIN 4- 6; Start 08/22/18 at 17:30 Morphine Sulfate (morphine) 2 mg Q4H PRN IV .SEVERE PAIN 7-10; Start 08/22/18 at 17:30 Docusate Sodium (Colace) 100 mg Q12H PRN PO .CONSTIPATION; Start 08/22/18 at 17:30 Magnesium Hydroxide (Milk Of Mag) 30 ml DAILY PRN PO .CONSTIPATION; Start 08/22/18 at 17:30 Pantoprazole (Protonix Iv) 40 mg BID@0600,1800 IV Last administered on 08/25/18at 06:49; Admin Dose 40 MG; Start 08/23/18 at 06:00 Lorazepam (Ativan) 0.5 mg Q6H PRN IV ANXIETY; Start 08/22/18 at 17:30 Albuterol/ Ipratropium (Duoneb) 3 ml Q4H RESP THERAPY PRN HHN SHORTNESS OF BREATH; Start 08/22/18 at 17:30 Hydralazine HCl (Apresoline) 10 mg Q6H PRN IV ELEVATED BLOOD PRESSURE; Start 08/22/18 at 17:30 Nitroglycerin (Nitroglycerin (Sl Tab) 0.4 Mg) 1 tab Q5M PRN SL ANGINA; Start 08/22/18 at 17:30 Nicotine (Nicoderm 14 Mg/ 24hr) 1 patch DAILY TRANSDERM Last administered on 08/24/18at 08:02; Admin Dose 1 PATCH; Start 08/22/18 at 19:30 Lactulose (Enulose) 20 gm Q6 PO Last administered on 08/25/18 06:49; Admin Dose 20 GM; Start 08/23/18 at 12:00 Ondansetron HCl 8 mg/Sodium Chloride 54 ml @ 216 mls/hr Q6H PRN IV NAUSEA AND/OR VOMITING; Start 08/23/18 at 11:00 Metoclopramide HCl (Reglan) 10 mg Q6H PRN IV NAUSEA AND/OR VOMITING Last administered on 08/24/18 19:01; Admin Dose 10 MG; Start 08/23/18 at 11:00 Ceftriaxone Sodium 50 ml @ 100 mls/hr Q24H IVPB Last administered on 08/24/18at 10:55; Admin Dose 100 MLS/HR; Start 08/23/18 at 11:00 Prednisolone (Prelone (Ped)) 40 mg DAILY PO Last administered on 08/23/18 12:13; Admin Dose 40 MG; Start 08/23/18 at 12:30; Stop 09/19/18 at 12:29 CLARK MARIE Aug 25, 2018 09:51
[2018-08-25] MEDS: NICOTINE (14 MG/24 HR) PATCH TRANSDERM SCH (10:15)
[2018-08-25] MEDS: predniSOLONE (3 MG/ML PO SYG) PO SCH (10:15)
[2018-08-25] MEDS ORDERED: PRED5TAB50 PO (11:40)
[2018-08-25] MEDS ORDERED: PROP10TA6 PO (11:40)
[2018-08-25] MEDS ORDERED: PANT40TA4 PO (11:40)
[2018-08-25] MEDS ORDERED: CIPR500T4 PO (11:40)
--- NOTE | 2018-08-25 11:45 | PDOCDIS ---
Discharge Instructions DIAGNOSIS Discharge Diagnosis Bleeding esophageal varices Alcoholic cirrhosis CONDITION [id number] Patient Condition: [id number] Guarded HOME CARE INSTRUCTIONS: [id number] Diet Instructions: [id number] y amount of alcohol will cause permanent damage to your liver. If you continue to drink, you will live less than six months. 2. Take all medications as prescribed. 3. Return to the emergency room if you start vomiting blood or have blood in your bowel movements. ANASTASIA MARTIN MD Aug 25, 2018 11:45
[2018-08-25] MEDS: CEFTRIAXONE 1 GM/50 ML (PMX) 50 ML IVPB SCH (12:10)
[2018-08-25] MEDS ORDERED: LORAZEPAM 0.5 MG TAB PO PRN (16:00)
[2018-08-25] MEDS ORDERED: morphine LIQ (10 MG/5 ML) CUP PO PRN (16:00)
--- NOTE | 2018-08-25 16:56 | DS ---
Date/Time of Note Date/Time of Note DATE: 08/25/18 TIME: 16:54 Discharge Summary Admission/Discharge Info Admit Date/Time Aug 22, 2018 at 15:29 Discharge Date/Time Aug 25, 2018 at 16:18 Discharge Diagnosis Bleeding esophageal varices Alcoholic cirrhosis Patient Condition: Guarded Consults Dr. Manrique, gastroenterology Procedures EGD with banding 08/24/2018 Hx of Present Illness HISTORY OF PRESENT ILLNESS: A 37-year-old female with past medical history based on records of alcohol abuse, alcoholic cirrhosis, possible diabetes, prior failure to thrive syndrome who was last here at our hospital from 03/07 to 03/24/2018. At that time, she was treated for failure to thrive and pancreatitis and hematemesis. She comes in this time with altered mental status. She was brought in by EMS. She also was complaining of abdominal cramping and had multiple episodes of hematemesis, coffee-ground like in color and intensity. The patient does admit to recent alcohol use as well. Denies any lower GI bleeding, no diarrhea or constipation, no nausea, vomiting or fevers or chills. When she came in today, she had blood tests performed that showed a hemoglobin of 6.3 and she has been ordered for 2 units of PRBC transfusion, which is presently waiting to be given. She was also found with platelets of 37, significant thrombocytopenia. She was also in the ER, started on Protonix drip and octreotide drip. PAST MEDICAL HISTORY: As stated above. ALLERGIES: NO KNOWN DRUG ALLERGIES. HOME MEDICATIONS: Unknown. PAST SURGICAL HISTORY: Looks like uterus removal surgery in the past. SOCIAL HISTORY: Positive for alcohol use and smoking history. Counseled on cessation. FAMILY HISTORY: Noncontributory. Hospital Course The patient was taken for EGD which showed grade III-IV nonbleeding varices. Six were banded. Hgb remained stable over hospital course. She was seen by social work and given resources for alcohol cessation. I spoke to her at length before discharge and made it clear that she would have less than six months to live if she continued to drink. She expressed understanding, refused inpatient rehab, and said she'll try to quit on her own. Discharged with prednisolone for alc oholic hepatitis as well. Home Meds Active Scripts Ciprofloxacin Hcl* (Ciprofloxacin Hcl*) 500 Mg Tablet, 500 MG PO BID, #14 TAB Prov:ANASTASIA MARTIN MD 08/25/18 Pantoprazole* (Pantoprazole*) 40 Mg Tablet., 40 MG PO BID, #60 TAB Prov:ANASTASIA MARTIN MD 08/25/18 Prednisolone* (Prednisolone*) 5 Mg Tablet, 40 MG PO DAILY for 30 Days, TAB Prov:ANASTASIA MARTIN MD 08/25/18 Propranolol Hcl* (Propranolol Hcl*) 10 Mg Tablet, 10 MG PO BID, #60 TAB Prov:ANASTASIA MARTIN MD 08/25/18 Discontinued Scripts Permethrin* (Elimite*) 5% Cr, 1 APPLIC TOP ONCE, #1 TUB Prov:GENESIS HAGER PA-C 07/06/18 Sodium Chloride (Saline Nasal [place]) 30 Ml [place], 30 ML NS BID , #1 SPRAY Prov:GENESIS HAGER PA-C 06/22/18 Thiamine* (Vitamin B-1*) 100 Mg Tablet, 100 MG PO DAILY for 30 Days, #30 TAB 6 Refills Prov:TRANG GARCIA MD 03/24/18 Multivitamins* (Theragran*) 1 Tab Tab, 1 TAB PO DAILY for 30 Days, #30 TAB 6 Refills Prov:TRANG GARCIA MD 03/24/18 Folic Acid* (Folic Acid*) 1 Mg Tablet, 1 MG PO DAILY for 30 Days, #30 TAB 6 Refills Prov:TRANG GARCIA MD 03/24/18 Furosemide (Lasix) 20 Mg Tab, 20 MG PO BID DIURETICS for 30 Days, #60 TAB 6 Refills Prov:TRANG GARCIA MD 03/24/18 Spironolactone* (Aldactone*) 50 Mg Tablet, 50 MG PO DAILY for 30 Days, #30 TAB 6 Refills Prov:TRANG GARCIA MD 03/24/18 Propranolol Hcl* (Propranolol Hcl*) 10 Mg Tablet, 10 MG PO BID for 30 Days, #60 TAB 6 Refills Prov:TRANG GARCIA MD 03/24/18 Pantoprazole* (Pantoprazole*) 40 Mg Tablet., 40 MG PO BID@,18 for 30 Days, #60 TAB 6 Refills Prov:TRANG GARCIA MD 03/14/18 Follow-up Plan 1. Stop drinking alcohol immediately. Any amount of alcohol will cause permanent damage to your liver. If you continue to drink, you will live less than six months. 2. Take all medications as prescribed. 3. Return to the emergency room if you start vomiting blood or have blood in your bowel movements. Primary Care Provider Care Physician No Primary Time spent on discharge: > 30 minutes Pending Labs Laboratory Tests Test 08/25/18 05:53 White Blood Count 5.1 10^3/ul (4.8-10.8) Red Blood Count 2.51 10^6/ul (4.20-5.40) Hemoglobin 9.1 g/dl (12.0-16.0) Hematocrit 27.1 % (37.0-47.0) Mean Corpuscular Volume 108.0 fl (82.0-101.0) Mean Corpuscular Hemoglobin 36.3 pg (29.0-33.0) Mean Corpuscular Hemoglobin Concent 33.6 g/dl (32.0-37.0) Red Cell Distribution Width % (11.5-14.5) Platelet Count 42 10^3/UL (140-415) Mean Platelet Volume 10.5 fl (7.4-10.4) Immature Granulocytes % 0.600 % (0.001-0.429) Neutrophils % 80.2 % (39.0-77.0) Lymphocytes % 11.7 % (15.0-51.0) Monocytes % 6.3 % (0.0-11.0) Eosinophils % 0.6 % (0.0-7.0) Basophils % 0.6 % (0.0-2.0) Nucleated Red Blood Cells % 0.0 /100WBC (0.0-0.0) Immature Granulocytes # 0.030 10^3/ul (0.0-0.031) Neutrophils # 4.1 10^3/ul (1.6-7.5) Lymphocytes # 0.6 10^3/ul (0.8-2.9) Monocytes # 0.3 10^3/ul (0.3-0.9) Eosinophils # 0.0 10^3/ul (0.0-0.5) Basophils # 0.0 10^3/ul (0.0-0.1) Nucleated Red Blood Cells # 0.0 10^3/ul (0.0-0.0) Total Bilirubin 7.1 mg/dl (0.2-1.3) Direct Bilirubin 3.90 mg/dl (0.00-0.20) Indirect Bilirubin 3.2 mg/dl (0-1.1) Aspartate Amino Transf (AST/SGOT) 65 IU/L (15-46) Alanine Aminotransferase (ALT/SGPT) 21 IU/L (13-69) Alkaline Phosphatase 241 IU/L (42-121) Total Protein 8.6 g/dl (6.1-8.1) Albumin 2.9 g/dl (3.3-4.9) ANASTASIA MARTIN MD Aug 25, 2018 16:56
[2018-08-25] MEDS ORDERED: PROPRANOLOL 10 MG TAB PO SCH (21:00)
[2018-08-25] MEDS ORDERED: RIFAXIMIN 550 MG TAB PO SCH (21:00)
[2018-08-25] MEDS ORDERED: LACTULOSE 30ML CUP PO SCH (21:00)
== END 2018-08-25 16:18 | disposition home or self-care (01) | DRG 432 ==
LOC: E/R 12:42 → 6WM 15:29
PROVIDERS: ADMIT Hospitalist; ATTEND Internal Medicine
PROC: 30233N1 Transfusion of Nonautologous Red Blood Cells into Peripheral Vein, Percutaneous Approach (ICD-10-PCS; 2018-08-23)
PROC: 30233R1 Transfusion of Nonautologous Platelets into Peripheral Vein, Percutaneous Approach (ICD-10-PCS; 2018-08-23)
PROC: 06L38ZZ Occlusion of Esophageal Vein, Via Natural or Artificial Opening Endoscopic (ICD-10-PCS; principal; 2018-08-24 17:00)
DX: K70.31 Alcoholic cirrhosis of liver with ascites (principal); I85.11 Secondary esophageal varices with bleeding; F10.239 Alcohol dependence with withdrawal, unspecified; Z68.1 Body mass index [BMI] 19.9 or less, adult; D62 Acute posthemorrhagic anemia; E44.0 Moderate protein-calorie malnutrition; F10.229 Alcohol dependence with intoxication, unspecified; Y90.8 Blood alcohol level of 240 mg/100 ml or more; E11.9 Type 2 diabetes mellitus without complications; R62.7 Adult failure to thrive; D69.6 Thrombocytopenia, unspecified; E83.42 Hypomagnesemia; K70.11 Alcoholic hepatitis with ascites; K70.40 Alcoholic hepatic failure without coma; D50.0 Iron deficiency anemia secondary to blood loss (chronic); Z72.0 Tobacco use
CPT/HCPCS: 36430; 71045; 76700; 80048; 80053; 80061; 80076; 80307; 82140; 82150; 82728; 82962; 83036; 83540; 83615; 83690; 83735; 83880; 84100; 84439; 84443; 84466; 84703; 85014; 85018; 85025; 85045; 85610; 85730; 86850; 86860; 86870; 86880; 86900; 86901; 86902; 86906; 86920; 86971; 87081; 96361; 96365; 96375; 96376; C9113; J0696; J2354; J2405; J2765; J3411; J3475; J3480; J7030; J7040; J7042; J7510; P9016; P9035